=== PATIENT | female | born 1940 | race Hispanic/Latino ===

== ENCOUNTER 2019-02-28 11:01 | Inpatient (IN) | payer MEDICARE ==
--- NOTE | 2019-02-28 11:29 | Event Note ---
ED Screening Note Date of service: 02/28/19 Time: 11:24 ED Screening Note: 79 y/o female comes in for concern of a stroke. Friend reports that she has been slow to respond today. Patient passed swallow screen test. Patient to be seen in the MAIN This initial assessment/diagnostic orders/clinical plan/treatment(s) is/are subject to change based on patients health status, clinical progression and re- assessment by fellow clinical providers in the ED. Further treatment and workup at subsequent clinical providers discretion. Patient/guardian urged not to elope from the ED as their condition may be serious if not clinically assessed and managed. Initial orders include: Cbc,cmp
[2019-02-28 12:09] LABS: Basophils % (Auto) 0.6 % (0.0-1.8); Eosinophils % (Auto) 0.3 % (0.0-4.3); Hematocrit 46.7 % (30.3-42.9); Hemoglobin 16.2 gm/dl (10.1-14.3); Lymphocytes # (Auto) 1.6 K/mm3 (1.2-5.4); Lymphocytes % (Auto) 19.5 % (13.4-35.0); Mean Corpuscular HGB Conc 35 % (30-34); Mean Corpuscular Volume 87 fl (79-97); Monocytes # (Auto) 0.5 K/mm3 (0.0-0.8); Monocytes % (Auto) 5.8 % (0.0-7.3); Platelet Count 176 K/mm3 (140-440); Red Blood Count 5.35 M/mm3 (3.65-5.03); Red Cell Distribution Width 12.6 % (13.2-15.2)
[2019-02-28 12:20] LABS: INR 0.89 (0.87-1.13); Partial Thromboplastin Time 20.4 Sec. (24.2-36.6)
--- NOTE | 2019-02-28 13:27 | Cat Scan Report ---
CT head/brain wo con INDICATION / CLINICAL INFORMATION: 79 years Female; AMS. TECHNIQUE: Routine CT head without contrast. All CT scans at this location are performed using CT dos e reduction for ALARA by means of automated exposure control. COMPARISON: MRI - 04/05/2018 FINDINGS: BRAIN / INTRACRANIAL CONTENTS: Low density area seen in the anterior lentiform nucleus on the left wh ich could represent a small lesion or lacunar infarct. This finding was not readily appreciated on pr ior study. This area measures approximately 8 mm in maximum dimension. Pre and postcontrast MRI may b e helpful for further evaluation. Otherwise, no acute hemorrhage, mass effect, midline shift, hydrocephalus, or acute, large territoria l infarct. Moderate cerebral and cerebellar atrophy. There are moderate, somewhat confluent areas of decreased attenuation in the white matter of the cere bral hemispheres. These are nonspecific findings and may be related to microangiopathy (hypertension, diabetes, atherosclerosis), given the patient's age. It might be difficult to evaluate for small are as of ischemia without diffusion imaging by MRI. CRANIOCERVICAL JUNCTION: No significant abnormality. ORBITS: No significant abnormality of visualized orbits. SINUSES / MASTOIDS: No significant abnormality of the visualized paranasal sinuses or mastoid air curtis ls. ADDITIONAL FINDINGS: Mild atherosclerotic disease is seen in the anterior and posterior circulation. IMPRESSION: 1. Nonspecific lesion in the left gangliocapsular region as described above. Pre and postcontrast MRI may be helpful for further evaluation, if clinically warranted. 2. Otherwise, no focal mass, hemorrhage, hydrocephalus, or acute, large territorial infarct seen. Signer Name: Estiven Solares MD, III Signed: 02/28/2019 1:23 PM Workstation Name: [id number]
[2019-02-28 13:34] LABS: Alanine Aminotransferase 13 units/L (7-56); Albumin 4.1 g/dL (3.9-5); BUN/Creatinine Ratio 32; Blood Urea Nitrogen 16 mg/dL (7-17); Calcium 9.9 mg/dL (8.4-10.2); Hemolysis Index 26
[2019-02-28] MEDS ORDERED: HumuLIN R IV ONE (13:41)
--- NOTE | 2019-02-28 14:39 | Emergency Department Report ---
HPI - General Chief Complaint: Neuro Symptoms/Deficit Time Seen by Provider: 02/28/19 11:24 - HPI HPI: 79-year-old female presents to the emergency department with complaint of some strokelike symptoms that are been going on intermittently over the past few days. The patient says that she was on the phone speaking with friends earlier when the friend felt like she wasn't making sense and was slurring some of her words. The patient told the friend who her primary care physician is and the friend then contacted them. She was told to have the patient come to the emergency department immediately for further evaluation. Since being in the emergency department, the patient is awake, alert and appropriate without any complaints or obvious deficits. The patient says that this has been going on intermittently over the past few days including where she feels like she is unable to completely express herself the way she intends to. The patient has a history of [id number] diabetes. The primary care physician is a Dr. Ko. ED Past Medical Hx - Past Medical History Previous Medical History?: Yes Hx Diabetes: Yes - Surgical History Past Surgical History?: Yes Additional Surgical History: biopsy - Social History Smoking Status: Never Smoker Substance Use Type: None ED Review of Systems ROS: Stated complaint: POSS STROKE/DIZZY Other details as noted in HPI Comment: All other systems reviewed and negative Constitutional: denies: chills, fever Eyes: denies: eye pain, vision change ENT: denies: ear pain, throat pain Respiratory: denies: cough, shortness of breath Cardiovascular: denies: chest pain, palpitations Gastrointestinal: denies: abdominal pain, vomiting Genitourinary: denies: dysuria, discharge Musculoskeletal: denies: back pain, arthralgia Skin: denies: rash, lesions Neurological: denies: headache, numbness Physical Exam - Physical Exam Vital Signs: Vital Signs 02/28/19 02/28/19 11:24 13:36 Temperature 97.9 F Pulse Rate 100 H 87 Respiratory 18 20 Rate Blood Pressure 161/88 Blood Pressure 163/88 [Right] O2 Sat by Pulse 98 96 Oximetry Physical Exam: GENERAL: The patient is well-developed well-nourished. HENT: Normocephalic. Atraumatic. Patient has moist mucous membranes. EYES: Extraocular motions are intact. Pupils equal reactive to light bilaterally. Mild fatigable horizontal nystagmus. NECK: Supple. Trachea is midline. CHEST/LUNGS: Clear to auscultation. There is no respiratory distress noted. HEART/CARDIOVASCULAR: Regular. There is no tachycardia. There is no murmur. ABDOMEN: Abdomen is soft, nontender. Patient has normal bowel sounds. There is no abdominal distention. SKIN: Skin is warm and dry. NEURO: The patient is awake, alert, and oriented. The patient is cooperative. The patient has no focal neurologic deficits. The patient has normal speech. Cranial nerves II through XII grossly intact. No pronator drift. No dysmetria. No facial asymmetry. MUSCULOSKELETAL: There is no tenderness or deformity. There is no limitation range of motion. There is no evidence of acute injury. ED Course Vital Signs 02/28/19 02/28/19 11:24 13:36 Temperature 97.9 F Pulse Rate 100 H 87 Respiratory 18 20 Rate Blood Pressure 161/88 Blood Pressure 163/88 [Right] O2 Sat by Pulse 98 96 Oximetry ED Medical Decision Making - Lab Data Result diagrams: 02/28/19 11:48 02/28/19 11:45 - EKG Data -: EKG Interpreted by Ny EKG shows normal: sinus rhythm, axis, intervals, QRS complexes (LVH), ST-T waves (flattening of T waves) Rate: normal - EKG Data When compared to previous EKG there are: previous EKG unavailable Interpretation: other (sinus rhythm, LVH, flattening of T waves) - Radiology Data Radiology results: report reviewed CT head/brain wo con INDICATION / CLINICAL INFORMATION: 79 years Female; AMS. TECHNIQUE: Routine CT head without contrast. All CT scans at this location are performed using CT dose reduction for ALARA by means of automated exposure control. COMPARISON: MRI - 04/05/2018 FINDINGS: BRAIN / INTRACRANIAL CONTENTS: Low density area seen in the anterior lentiform nucleus on the left which could represent a small lesion or lacunar infarct. This finding was not readily appreciated on prior study. This area measures approximately 8 mm in maximum dimension. Pre and postcontrast MRI may be helpful for further evaluation. Otherwise, no acute hemorrhage, mass effect, midline shift, hydrocephalus, or acute, large territorial infarct. Moderate cerebral and cerebellar atrophy. There are moderate, somewhat confluent areas of decreased attenuation in the white matter of the cerebral hemispheres. These are nonspecific findings and may be related to microangiopathy (hypertension, diabetes, atherosclerosis), given the patient's age. It might be difficult to evaluate for small areas of ischemia without diffusion imaging by MRI. CRANIOCERVICAL JUNCTION: No significant abnormality. ORBITS: No significant abnormality of visualized orbits. SINUSES / MASTOIDS: No significant abnormality of the visualized paranasal sinuses or mastoid air cells. ADDITIONAL FINDINGS: Mild atherosclerotic disease is seen in the anterior and posterior circulation. IMPRESSION: 1. Nonspecific lesion in the left gangliocapsular region as described above. Pre and postcontrast MRI may be helpful for further evaluation, if clinically warranted. 2. Otherwise, no focal mass, hemorrhage, hydrocephalus, or acute, large territorial infarct seen. - Medical Decision Making This patient presents for evaluation after she has had some strokelike symptoms recently including some difficulty with her thought process, difficulty expressing herself while on the phone and some questionable slurred speech. However at the time of my examination the patient has no focal, motor or sensory deficits in her cranial nerves are intact. Vital signs stable. He being afebrile but she does have some hypertension. The patient has a history of [id number] diabetes and she does have some hyperglycemia but does not appear to be in diabetic ketoacidosis or HHNK. She was given some IV insulin for treatment of her hyperglycemia. CT scan of the head without contrast showed some nonspecific lesion to the left ganglia capsular region. With her strokelike symptoms and this abnormal CT finding of the brain, the patient will be admitted to the hospital for further evaluation. She was accepted for admission by the hospitalist, Dr. Frederick. - Differential Diagnosis TIA, CVA, DKA, HHNK Critical Care Time: No Critical care attestation.: If time is entered above; I have spent that time in minutes in the direct care of this critically ill patient, excluding procedure time. ED Disposition Clinical Impression: Stroke-like symptoms, Abnormal CT scan of head Hypertension Qualifiers: Hypertension type: essential hypertension Qualified Code(s): I10 - Essential (primary) hypertension Hyperglycemia due to type 2 diabetes mellitus Qualifiers: Diabetes mellitus mcc insulin use: unspecified mcc insulin use status Qualified Code(s): E11.65 - Type 2 diabetes mellitus with hyperglycemia Disposition: OP ADMIT IP TO THIS HOSP Is pt being admited?: Yes Condition: Stable Instructions: Hypertension (ED), Diabetes Mellitus Type 2 in Adults (ED) Time of Disposition: 15:39
[2019-02-28] MEDS ORDERED: ZOFRAN IV PRN (21:20)
[2019-02-28] MEDS ORDERED: TYLENOL PO PRN (21:20)
[2019-02-28] MEDS ORDERED: REGLAN IV PRN (21:20)
[2019-02-28] MEDS ORDERED: SODIUM CHLORIDE FLUSH SYRINGE 10 ML IV PRN (21:20)
[2019-02-28] MEDS ORDERED: DILAUDID IV PRN (21:20)
[2019-02-28] MEDS: NACL 0.9% 1000 ML 1,000 ML IV SCH (21:59)
[2019-02-28] MEDS: ASPIRIN PO SCH (22:00)
[2019-02-28] MEDS: HumaLOG SUB-Q SCH (22:00)
[2019-02-28] MEDS: PEPCID IV SCH (22:00)
[2019-02-28] MEDS: SODIUM CHLORIDE FLUSH SYRINGE 10 ML IV SCH (22:00)
[2019-03-01] MEDS ORDERED: LANTUS SUB-Q ONE (00:18)
[2019-03-01 05:13] LABS: Basophils % (Auto) 0.5 % (0.0-1.8); Eosinophils # (Auto) 0.1 K/mm3 (0.0-0.4); Hematocrit 43.2 % (30.3-42.9); Lymphocytes # (Auto) 2.8 K/mm3 (1.2-5.4); Lymphocytes % (Auto) 39.5 % (13.4-35.0); Mean Corpuscular HGB Conc 35 % (30-34); Mean Corpuscular Volume 87 fl (79-97); Monocytes # (Auto) 0.5 K/mm3 (0.0-0.8); Monocytes % (Auto) 7.5 % (0.0-7.3); Platelet Count 144 K/mm3 (140-440); Red Blood Count 4.97 M/mm3 (3.65-5.03); Red Cell Distribution Width 12.6 % (13.2-15.2)
[2019-03-01 05:50] LABS: Alanine Aminotransferase 11 units/L (7-56); Albumin 3.7 g/dL (3.9-5); BUN/Creatinine Ratio 32; Blood Urea Nitrogen 16 mg/dL (7-17); Calcium 9.4 mg/dL (8.4-10.2); Hemolysis Index 7
--- NOTE | 2019-03-01 07:03 | Event Note ---
Date: 02/28/19 SEE H/p in reports TIA
--- NOTE | 2019-03-01 07:28 | History and Physical Report ---
CHIEF COMPLAINT: Slurred speech off and on for the last 2-3 days. HISTORY OF PRESENT ILLNESS: A 79-year-old female with history of diabetes, presents with a slurred speech off and on for the last 2 days, which has resolved while in the Emergency Room. She was talking on phone with friends who noticed that she was not making sense and was slurring her words. In the Emergency Room, the patient is awake, alert with no obvious neurological deficits. As per the friend who was at a side, the patient had slurred speech and severe dysarthria and could not understand. PAST MEDICAL HISTORY: Diabetes type 2. PAST SURGICAL HISTORY: None. SOCIAL HISTORY: Does not smoke. No alcohol, no recreational drugs. FAMILY HISTORY: Significant for diabetes. REVIEW OF SYSTEMS: Significant for slurred speech on the INCIDENT COORDINATOR symptoms, which has resolved completely. Otherwise, review of systems negative. PHYSICAL EXAMINATION: GENERAL: Elderly female, cooperative during examination. VITAL SIGNS: Blood pressure is 207/134, temperature 98.6, pulse is 104, respirations are 23, sats are 93%. HEENT: Unremarkable. Pupils equal and reactive. NECK: Supple, no lymphadenopathy, no thyromegaly. LUNGS: Clear to auscultation and percussion. Good air entry. CARDIOVASCULAR: S1, S2 heard. No gallop, no murmur, no rub. Apical impulse in left fifth intercostal space and midclavicular line. ABDOMEN: Soft and benign. No hepatosplenomegaly. No guarding, no rigidity. Hernial orifices are normal. EXTREMITIES: Good pedal pulses. No pedal edema. CENTRAL NERVOUS SYSTEM: Normal at the time of my examination. Power is 5/5 in all 4 extremities. Speech is normal. No cranial nerve deficits. No facial palsy. LABORATORY DATA: Significant for H and H of 16.2 and 46.7. White count is 8100, platelet count is 176,000. Sodium is 135, slightly low. BUN and creatinine is 16 and 0.5. Glucose is 388. A1c is 12.5, albumin is 3.7. ASSESSMENT AND PLAN: 1. Transient ischemic attack, symptoms are resolved. We will get MRI and carotid duplex scan and echocardiogram. MRA was not ordered. Neurology consult was requested. 2. Hypertensive emergency. Blood pressure medications were initiated. IV hydralazine as necessary. 3. Type 2 diabetes, uncontrolled. Aggressive control of blood sugars. A1c is high, about 12. The patient is to be discharged on insulin twice a day. The patient counseled about the blood glucose levels. Slurred speech may have been secondary to high blood glucose levels. 4. Hyponatremia, mild. IV fluids for now. 5. Deep venous thrombosis prophylaxis, Lovenox 40 mg subcutaneous daily. JOB# [id number] VSM/NTS
[2019-03-01] MEDS: HumaLOG SUB-Q SCH ×4 (08:00→23:24)
[2019-03-01] MEDS: SODIUM CHLORIDE FLUSH SYRINGE 10 ML IV SCH ×2 (10:45→23:25)
[2019-03-01] MEDS: COZAAR PO SCH (10:45)
[2019-03-01] MEDS: COREG PO SCH ×2 (10:45→23:24)
[2019-03-01] MEDS ORDERED: ATIVAN IV NR (10:45)
[2019-03-01] MEDS: ASPIRIN PO SCH (10:45)
[2019-03-01] MEDS: PEPCID PO SCH ×2 (10:48→23:23)
[2019-03-01] MEDS: PEPCID IV SCH (11:35)
--- NOTE | 2019-03-01 12:05 | Vascular Lab Report ---
BILATERAL CAROTID DOPPLER ULTRASOUND INDICATION : Transient ischemic attack TECHNIQUE: Grayscale and color Doppler imaging performed through the neck. COMPARISON: None FINDINGS: Right: There is minimal intimal hyperplasia throughout the right carotid system.. Peak systolic ajck ocity in the CCA is 88 cm/s with end-diastolic velocity of 12 cm/s. Peak systolic velocity in the pro ximal ICA is 78 cm/s with end-diastolic velocity of 21 cm/s. ICA to CCA ratio is less than 2. There i s antegrade flow in the ECA and the vertebral artery. Left: There is mild intimal hyperplasia in the left CCA and moderate shadowing calcific plaques in th e left carotid bulb.. Peak systolic velocity in the CCA is 85 cm/s with end-diastolic velocity of 10 cm/s. Peak systolic velocity in the proximal ICA is 71 cm/s with end-diastolic velocity of 24 cm/s. I CA to CCA ratio is less than 2. There is antegrade flow in the ECA and the vertebral artery. IMPRESSION: No hemodynamically significant stenosis by NASCET criteria. Moderate calcific plaques in the left carotid bulb. Signer Name: Kalyan Bhakta Jr, MD Signed: 03/01/2019 12:01 PM Workstation Name: [id number]
--- NOTE | 2019-03-01 12:10 | Progress Note ---
Assessment and Plan Assessment and plan: CVA. CT scan of the head reveals left gangliocapsular region with possible lacunar infarct versus lesion. F/U MRI, echocardiogram and carotid Dopplers. Accelerated hypertension. Continue antihypertensive medications. Diabetes mellitus type 2. Continue Accu-Cheks and sliding scale insulin. Hyponatremia. Continue IV fluid hydration. Follow BMP. Hypokalemia. Replete potassium. History Interval history: No new issues overnight. Patient denies deficits. Hospitalist Physical - Constitutional Vitals: Temp Pulse Resp BP Pulse Ox 97.9 F 82 18 171/85 98 03/01/19 04:18 03/01/19 07:40 03/01/19 04:15 03/01/19 04:15 03/01/19 04:15 General appearance: Present: no acute distress, well-nourished - EENT Eyes: Present: PERRL, EOM intact ENT: hearing intact, clear oral mucosa, dentition normal - Neck Neck: Present: supple, normal ROM - Respiratory Respiratory effort: normal Respiratory: bilateral: CTA - Cardiovascular Rhythm: regular Heart Sounds: Present: S1 & S2. Absent: gallop, rub - Extremities Extremities: no ischemia, No edema, Full ROM - Abdominal General gastrointestinal: soft, non-tender, non-distended, normal bowel sounds - Integumentary Integumentary: Present: clear, warm, dry - Neurologic Neurologic: CNII-XII intact, moves all extremities Results - Labs CBC & Chem 7: 03/01/19 03:59 03/01/19 03:59 Labs: Laboratory Last Values WBC 7.0 K/mm3 (4.5-11.0) 03/01/19 03:59 RBC 4.97 M/mm3 (3.65-5.03) 03/01/19 03:59 Hgb 15.0 gm/dl (10.1-14.3) H 03/01/19 03:59 Hct 43.2 % (30.3-42.9) H 03/01/19 03:59 MCV 87 fl (79-97) 03/01/19 03:59 MCH 30 pg (28-32) 03/01/19 03:59 MCHC 35 % (30-34) H 03/01/19 03:59 RDW 12.6 % (13.2-15.2) L 03/01/19 03:59 Plt Count 144 K/mm3 (140-440) 03/01/19 03:59 Lymph % (Auto) 39.5 % (13.4-35.0) H 03/01/19 03:59 Talbot % (Auto) 7.5 % (0.0-7.3) H 03/01/19 03:59 Eos % (Auto) 1.0 % (0.0-4.3) 03/01/19 03:59 Baso % (Auto) 0.5 % (0.0-1.8) 03/01/19 03:59 Lymph # 2.8 K/mm3 (1.2-5.4) 03/01/19 03:59 Talbot # 0.5 K/mm3 (0.0-0.8) 03/01/19 03:59 Eos # 0.1 K/mm3 (0.0-0.4) 03/01/19 03:59 Baso # 0.0 K/mm3 (0.0-0.1) 03/01/19 03:59 Seg Neutrophils % 51.5 % (40.0-70.0) 03/01/19 03:59 Seg Neutrophils # 3.6 K/mm3 (1.8-7.7) 03/01/19 03:59 PT 11.8 Sec. (12.2-14.9) L 02/28/19 11:48 INR 0.89 (0.87-1.13) 02/28/19 11:48 APTT 20.4 Sec. (24.2-36.6) L 02/28/19 11:48 Sodium 138 mmol/L (137-145) 03/01/19 03:59 Potassium 3.0 mmol/L (3.6-5.0) L D 03/01/19 03:59 Chloride 100.3 mmol/L (98-107) 03/01/19 03:59 Carbon Dioxide 25 mmol/L (22-30) 03/01/19 03:59 16 mmol/L 03/01/19 03:59 BUN 16 mg/dL (7-17) 03/01/19 03:59 0.5 mg/dL (0.7-1.2) L 03/01/19 03:59 Estimated GFR > 60 ml/min 03/01/19 03:59 32 % 03/01/19 03:59 Glucose 202 mg/dL (65-100) H 03/01/19 03:59 POC Glucose 201 (70-105) H 03/01/19 07:29 12.5 % (4-6) H 02/28/19 11:48 Calcium 9.4 mg/dL (8.4-10.2) 03/01/19 03:59 0.40 mg/dL (0.1-1.2) 03/01/19 03:59 AST 12 units/L (5-40) 03/01/19 03:59 ALT 11 units/L (7-56) 03/01/19 03:59 75 units/L (35-129) 03/01/19 03:59 < 0.010 ng/mL (0.00-0.029) 02/28/19 12:42 6.7 g/dL (6.3-8.2) 03/01/19 03:59 3.7 g/dL (3.9-5) L 03/01/19 03:59 1.2 % 03/01/19 03:59 TSH 2.170 mlU/mL (0.270-4.200) 02/28/19 12:42 Active Medications - Current Medications Current Medications: Generic Name Dose Route Start Last Admin Trade Name Freq PRN Reason Stop Dose Admin Acetaminophen 650 mg 02/28/19 21:20 Tylenol PO Q4H PRN Pain MILD(1-3)/Fever >100.5/SMYTH Aspirin 325 mg 02/28/19 22:00 03/01/19 10:45 Aspirin PO 325 mg QDAY MARY GRACE Administration Atorvastatin Calcium 20 mg 02/28/19 22:00 02/28/19 22:00 Lipitor PO 20 mg QHS MARY GRACE Administration Carvedilol 6.25 mg 03/01/19 10:00 03/01/19 10:45 Coreg PO 6.25 mg BID MARY GRACE Administration Enoxaparin Sodium 40 mg 03/01/19 22:00 Lovenox SUB-Q QDAY@2200 MARY GRACE Famotidine 20 mg 03/01/19 11:00 03/01/19 10:48 Pepcid PO 20 mg BID MARY GRACE Administration Hydromorphone HCl 0.5 mg 02/28/19 21:20 Dilaudid IV Q3H PRN Pain , Severe (7-10) Sodium Chloride 1,000 mls @ 75 mls/hr 02/28/19 22:00 02/28/19 21:59 Nacl 0.9% 1000 Ml IV 75 mls/hr DIRECT MARY GRACE Administration Insulin Human Isoph/Insulin Regular 20 unit 03/01/19 09:00 03/01/19 10:48 Humulin 70/30 SUB-Q 20 unit BIDDIAB MARY GRACE Administration Insulin Human Lispro 0 unit 02/28/19 22:00 03/01/19 08:00 Humalog SUB-Q 3 unit ACHS MARY GRACE Administration Protocol Lorazepam 0.5 mg 03/01/19 10:45 Ativan IV 03/01/19 18:00 CORK TIPPER NR Losartan Potassium 100 mg 03/01/19 10:00 03/01/19 10:45 Cozaar PO 100 mg QDAY MARY GRACE Administration Metoclopramide HCl 10 mg 02/28/19 21:20 Reglan IV Q6H PRN Nausea And Vomiting Ondansetron HCl 4 mg 02/28/19 21:20 Zofran IV Q8H PRN Nausea And Vomiting Sodium Chloride 10 ml 02/28/19 22:00 03/01/19 10:45 Sodium Chloride Flush Syringe 10 Ml IV 10 ml BID MARY GRACE Administration Sodium Chloride 10 ml 02/28/19 21:20 Sodium Chloride Flush Syringe 10 Ml IV PRN PRN LINE FLUSH
[2019-03-01] MEDS: K-DUR PO SCH (14:47)
[2019-03-01] MEDS: NACL 0.9% 1000 ML 1,000 ML IV SCH (14:47)
--- NOTE | 2019-03-01 16:18 | Consultation ---
History of Present Illness Consult date: 03/01/19 Reason for Consult: TIA Chief complaint: Difficulty speaking History of present illness: Patient is a 79-year-old woman with a history of hypertension, diabetes mellitus, depression. She lives alone at home, and noted that for the past 2 weeks, she not been taking her medications regularly. Last , she been s peaking with a friend of hers over the phone, and her friend noted that she seemed confused, and had some difficulty finding words while communicating. Her friend came to check on her home, and found that she indeed had some difficulty while communicating. She was only answering in yes or no answers at that time, and was unable to have detailed conversation, as she had difficulty finding words. After admission, the patient has now returned to baseline. Past History Past Medical History: diabetes, hypertension, other (depression) Social history: no significant social history, Lives alone Medications and Allergies Allergies Allergy/AdvReac Type Severity Reaction Status Date / Time Penicillins Allergy Unknown Verified 01/21/15 18:11 Home Medications Medication Instructions Recorded Confirmed Last Taken Type No Known Home Medications [No 02/28/19 02/28/19 Unknown History Reported Home Medications] Active Meds: Active Medications Acetaminophen (Tylenol) 650 mg PO Q4H PRN PRN Reason: Pain MILD(1-3)/Fever >100.5/SMYTH Aspirin (Aspirin) 325 mg PO QDAY [facility] Last Admin: 03/01/19 10:45 Dose: 325 mg Documented by: Atorvastatin Calcium (Lipitor) 20 mg PO QHS [facility] Last Admin: 02/28/19 22:00 Dose: 20 mg Documented by: Carvedilol (Coreg) 6.25 mg PO BID [facility] Last Admin: 03/01/19 10:45 Dose: 6.25 mg Documented by: Enoxaparin Sodium (Lovenox) 40 mg SUB-Q QDAY@2200 [facility] Famotidine (Pepcid) 20 mg PO BID [facility] Last Admin: 03/01/19 10:48 Dose: 20 mg Documented by: Hydromorphone HCl (Dilaudid) 0.5 mg IV Q3H PRN PRN Reason: Pain , Severe (7-10) Sodium Chloride (Nacl 0.9% 1000 Ml) 1,000 mls @ 75 mls/hr IV DIRECT [facility] Last Admin: 03/01/19 14:47 Dose: 75 mls/hr Documented by: Insulin Human Isoph/Insulin Regular (Humulin 70/30) 20 unit SUB-Q BIDDIAB [facility] Last Admin: 03/01/19 10:48 Dose: 20 unit Documented by: Insulin Human Lispro (Humalog) 0 unit SUB-Q ACHS [facility]; Protocol Last Admin: 03/01/19 13:24 Dose: 8 unit Documented by: Lorazepam (Ativan) 0.5 mg 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 Stop: 03/01/19 18:00 Last Admin: 03/01/19 13:32 Dose: 0.5 mg Documented by: Losartan Potassium (Cozaar) 100 mg PO QDAY [facility] Last Admin: 03/01/19 10:45 Dose: 100 mg Documented by: Metoclopramide HCl (Reglan) 10 mg IV Q6H PRN PRN Reason: Nausea And Vomiting Ondansetron HCl (Zofran) 4 mg IV Q8H PRN PRN Reason: Nausea And Vomiting Potassium Chloride (K-Dur) 40 meq PO QDAY [facility] Last Admin: 03/01/19 14:47 Dose: 40 meq Documented by: Sodium Chloride (Sodium Chloride Flush Syringe 10 Ml) 10 ml IV BID [facility] Last Admin: 03/01/19 10:45 Dose: 10 ml Documented by: Sodium Chloride (Sodium Chloride Flush Syringe 10 Ml) 10 ml IV PRN PRN PRN Reason: LINE FLUSH Review of Systems All systems: negative Neurological: change in speech Psychiatric: depression Physical Examination - Vital Signs Vital Signs: Vital Signs Temp Pulse Resp BP Pulse Ox 97.9 F 100 H 18 161/88 98 02/28/19 11:24 02/28/19 11:24 02/28/19 11:24 02/28/19 11:24 02/28/19 11:24 - Constitutional General appearance: comfortable - EENT EENT: Present: ATNC, PERRL, mucous membranes moist, hearing intact, vision intact - Respiratory Respiratory: Present: lungs clear, normal breath sounds - Cardiovascular Cardiovascular: Present: regular rate, normal S1, normal S2 Extremities: Present: no peripheral edema bilatateraly, no clubbing, cyanosis - Gastrointestinal Gastrointestinal: Present: normoactive bowel sounds, soft, non-tender - Integumentary Integumentary: Present: normal - Neurologic Cranial nerve examination: PERRL, EOMI, VFF, V1/V2/V3 grossly intact, face symmetric, intact shoulder shrug Speech examination: intact Sensorimotor examination: intact Motor examination - right side: 5: biceps, triceps, wrist flexion, wrist extension, barometers calibrator, hip flexors, knee extensors, dorsiflexion, toe extension (EHL), plantarflexion Motor examination - left side: 5: biceps, triceps, wrist flexion, wrist extension, barometers calibrator, hip flexors, knee extensors, dorsiflexion, toe extension (EHL), plantarflexion Detailed sensory examination: intact, light touch Reflexes: 2+: ankle, bicep, knee, tricep Cerebellar examination: other (intact b/l to FTN) - Musculoskeletal Musculoskeletal: Present: no pain, normal range of motion - Psychiatric Psychiatric: Present: mood/affect appropriate, cooperative - Level of Consciousness 1a. Level of Consciousness: alert/keenly responsive - LOC Questions 1b. LOC Questions: answers both correctly - LOC Command 1c. LOC Commands: performs tasks correctly - Best Gaze 2. Best Gaze: normal - Visual 3. Visual: no visual loss - Facial Palsy 4. Facial Palsy: normal symmetrical movement - Motor Arm 5a. Motor Arm Left: no drift 5b. Motor Arm Right: no drift - Motor Leg 6a. Motor Leg Left: no drift 6b. Motor Leg Right: no drift - Limb Ataxia 7. Limb Ataxia: absent - Sensory 8. Sensory: normal - Best Language 9. Best Language: no aphasia - Dysarthria 10. Dysarthria: normal - Extinction and Inattention 11. Extinction/Inattention: no abnormality - Scoring Total Score: 0 Stroke Severity: No Stroke Symptoms Results - Laboratory Findings CBC and BMP: 03/01/19 03:59 03/01/19 03:59 Abnormal Lab Findings: Abnormal Labs 02/28/19 02/28/19 02/28/19 11:34 11:45 11:48 RBC 5.35 H Hgb 16.2 H Hct 46.7 H MCHC 35 H RDW 12.6 L Lymph % (Auto) [place] % (Auto) Seg Neutrophils % 73.8 H PT APTT Sodium 135 L Potassium Chloride 93.5 L Creatinine 0.5 L Glucose 388 H POC Glucose 342 H Hemoglobin A1c Albumin 02/28/19 02/28/19 02/28/19 11:48 11:48 14:49 RBC Hgb Hct MCHC RDW Lymph % (Auto) [place] % (Auto) Seg Neutrophils % PT 11.8 L APTT 20.4 L Sodium Potassium Chloride Creatinine Glucose POC Glucose 299 H Hemoglobin A1c 12.5 H Albumin 02/28/19 02/28/19 02/28/19 16:28 17:47 21:12 RBC Hgb Hct MCHC RDW Lymph % (Auto) [place] % (Auto) Seg Neutrophils % PT APTT Sodium Potassium Chloride Creatinine Glucose POC Glucose 253 H 350 H > 500 H Hemoglobin A1c Albumin 02/28/19 03/01/19 03/01/19 21:48 00:12 03:59 RBC Hgb 15.0 H Hct 43.2 H MCHC 35 H RDW 12.6 L Lymph % (Auto) 39.5 H [place] % (Auto) 7.5 H Seg Neutrophils % PT APTT Sodium Potassium Chloride Creatinine Glucose 567 H* POC Glucose 297 H Hemoglobin A1c Albumin 03/01/19 03/01/19 03/01/19 03:59 07:29 12:14 RBC Hgb Hct MCHC RDW Lymph % (Auto) [place] % (Auto) Seg Neutrophils % PT APTT Sodium Potassium 3.0 L D Chloride Creatinine 0.5 L Glucose 202 H POC Glucose 201 H 403 H Hemoglobin A1c Albumin 3.7 L Assessment and Plan Patient is a 79-year-old woman with a history of hypertension, diabetes m ellitus, depression. She presents with word finding difficulty that was noted by her friend while talking to her on . I spoke with her friend, Destiny, and was given a detailed explanation of what happened during that event. According the patient's clinical findings, it is possible that the patient has had a TIA. Supporting this diagnosis is the fact that the patient has risk factors of hypertension, diabetes mellitus, and not been taking her medications for the past 2 weeks. Patient had previously been prescribed aspirin, however she states that she is noncompliant with this. Further, her friend stated that she noted word finding difficulty when trying to speak to the patient on . Plan: 1:TIA: - MRI brain did not reveal any evidence of acute ischemic stroke Echocardiogram: EF 60-65%, bubble study negative, left atrium normal size. Hemoglobin A1c 12.5. Check lipid profile. Check urinalysis. - Check CTA head/neck for better visualization of cerebrovasculature Secondary prevention: Start patient on aspirin 81 mg daily. Start patient on atorvastatin 40 mg daily. Telemetry monitoring while in-house. Physical therapy and occupational therapy for evaluation of mobility. Speech therapy not indicated at this time as patient does not have any notable speech impairment. DVT prophylaxis: Recommend Lovenox #2 hypertension: Recommend blood pressure goal of normotension, as event is greater than 48 hours ago. - We'll continue to follow patient. - Once discharged, patient would need to follow up with neurology as outpatient. Mitchel Gonzalez MD Neurology
--- NOTE | 2019-03-01 16:46 | Magnetic Resonance Report ---
MRI BRAIN WITHOUT CONTRAST INDICATION / CLINICAL INFORMATION: TIA. TECHNIQUE: Multiplanar, multisequence MR images of the brain were obtained. COMPARISON: MRI scan from 04/05/2018 FINDINGS: BRAIN / INTRACRANIAL CONTENTS: No acute territorial and basal ganglia ischemia, acute hemorrhage, mas s effect, midline shift, or hydrocephalus. However, as seen in the last MRI scan, extra-axial lesion is seen in the left pterion with increased diffusion signal. This lesion enhanced homogenously in th e last MRI scan, consistent with meningioma. This meningioma measures 15 mm (sagittal) x 16 mm (heigh t) x 10millimeters (width). Since the last MRI scan, meningioma remains unchanged in size. I do not s ee vasogenic edema in the adjacent brain. As seen in the last MRI scan, confluent periventricular white matter hyperintensity (moderate) seen. Chronic microvascular angiopathic changes are seen in both basal ganglia and to a lesser degree in th e valentin. White matter lesions are also seen in the temporal lobes which would be an usual microvascula r faint angiopathy. Since the last MRI scan, ischemic changes are also seen in the left centrum semiovale. I am unable to determine the age. IMPRESSION: CRANIOCERVICAL JUNCTION: No significant abnormality. VASCULAR FLOW-VOIDS: No significant abnormality. ORBITS: No significant abnormality of visualized orbits. SINUSES / MASTOIDS: No significant abnormality of visualized sinuses and mastoid air cells. ADDITIONAL FINDINGS: None. IMPRESSION: I do not see acute or subacute infarction. Left anterior and meningioma; remains unchanged since March 2018 Signer Name: Yeison Clements MD Signed: 03/01/2019 4:41 PM Workstation Name: [id number]
[2019-03-01] MEDS ORDERED: LOVENOX SUB-Q SCH (22:00)
[2019-03-02 03:02] LABS: Chol/HDL Ratio 5.4 %
[2019-03-02 08:00] LABS: Bilirubin,Urine NEG (Negative); Blood,Urine NEG (Negative); Color,Urine Yellow (Yellow); Protein,Urine <15 mg/dL mg/dL (Negative); Urobilinogen,Urine < 2.0 mg/dL (<2.0)
--- NOTE | 2019-03-02 09:25 | Discharge Summary ---
Providers - Providers Date of Admission: 02/28/19 14:48 Date of discharge: 03/02/19 Attending physician: RODOLFO CHAN 02/28/19 21:20 Consult to Physician [CONS] Routine Comment: Consulting Provider: AZIZA ESPINOSA Physician Instructions: Reason For Exam: TIA Primary care physician: [facility], Hospitalization Reason for admission: TIA Condition: Stable Hospital course: Patient is a 79-year-old woman with a history of hypertension, diabetes mellitus, depression. She presents with word finding difficulty that was noted by her friend while talking to her on . Neurology spoke with her friend, Destiny, and was given a detailed explanation of what happened during that event. According the patient's clinical findings, it is possible that the patient has had a TIA. Supporting this diagnosis is the fact that the patient has risk factors of hypertension, diabetes mellitus, and not been taking her medications for the past 2 weeks. Patient had previously been prescribed aspirin, however she states that she is noncompliant with this. Further, her friend stated that she noted word finding difficulty when trying to speak to the patient on . Workup revealed - MRI brain did not reveal any evidence of acute ischemic stroke Echocardiogram: EF 60-65%, bubble study negative, left atrium normal size. Hemoglobin A1c 12.5. Check lipid profile. Check urinalysis. - Check CTA head/neck for better visualization of cerebrovasculature Neurology recommended aspirin 81 mg daily and atorvastatin 40 mg daily. Patient will discharge home if cleared by physical therapy. Dedicated discharge time 32 minutes. Disposition: DC-30 STILL A PATIENT Core Measure Documentation - Palliative Care Palliative Care/ Comfort Measures: Not Applicable - Core Measures Any of the following diagnoses?: none Exam - Constitutional Vitals: Temp Pulse Resp BP Pulse Ox 98.0 F 108 H 18 156/62 98 03/01/19 19:40 03/01/19 23:24 03/01/19 19:40 03/01/19 23:24 03/01/19 19:40 General appearance: Present: no acute distress, well-nourished - EENT Eyes: Present: PERRL ENT: hearing intact, clear oral mucosa - Neck Neck: Present: supple, normal ROM - Respiratory Respiratory effort: normal Respiratory: bilateral: CTA - Cardiovascular Heart Sounds: Present: S1 & S2. Absent: rub, click - Extremities Extremities: pulses symmetrical, No edema Peripheral Pulses: within normal limits - Abdominal General gastrointestinal: Present: soft, non-tender, non-distended, normal bowel sounds Female genitourinary: Present: normal - Integumentary Integumentary: Present: clear, warm, dry - Musculoskeletal Musculoskeletal: gait normal, strength equal bilaterally - Psychiatric Psychiatric: appropriate mood/affect, intact judgment & insight - Neurologic Neurologic: CNII-XII intact, moves all extremities Plan Activity: advance as tolerated Weight Bearing Status: Weight Bear as Tolerated Diet: low fat, low cholesterol, low salt [facility] MARIA [facility]ESA [Primary Care Provider] - 3-5 Days AZIZA ESPINOSA MD [Staff Physician] - 7 Days Prescriptions: Aspirin [Aspirin BABY CHEW TAB] 81 mg PO QDAY #30 tab.chew Carvedilol [Coreg] 6.25 mg PO BID #60 tablet Losartan [Cozaar] 100 mg PO QDAY #30 tablet AtorvaSTATin [Lipitor] 40 mg PO QHS #30 tablet Insulin NPH/Regular [NovoLIN 70/30] 20 unit SUB-Q BIDDIAB 30 Days units Famotidine [Pepcid] 20 mg PO BID #60 tablet
[2019-03-02 09:38] VITALS: BP 158/85
[2019-03-02] MEDS ORDERED: BABY ASPIRIN PO SCH (10:00)
[2019-03-02] MEDS: COREG PO SCH (10:29)
[2019-03-02] MEDS: HumaLOG SUB-Q SCH ×2 (10:29→11:49)
[2019-03-02] MEDS: PEPCID PO SCH (10:29)
[2019-03-02] MEDS: K-DUR PO SCH (10:29)
[2019-03-02] MEDS: COZAAR PO SCH (10:29)
[2019-03-02] MEDS: SODIUM CHLORIDE FLUSH SYRINGE 10 ML IV SCH (10:30)
--- NOTE | 2019-03-02 14:36 | Progress Note ---
Assessment and Plan Patient is a 79-year-old woman with a history of hypertension, diabetes mellitus, depression. She presents with word finding difficulty that was noted by her friend while talking to her on . I spoke with her friend, Destiny, and was given a detailed explanation of what happened during that event. According the patient's clinical findings, it is possible that the patient has had a TIA. Supporting this diagnosis is the fact that the patient has risk factors of hypertension, diabetes mellitus, and not been taking her medications for the past 2 weeks. Patient had previously been prescribed aspirin, however she states that she is noncompliant with this. Further, her friend stated that she noted word finding difficulty when trying to speak to the patient on . Plan: 1:TIA: - MRI brain did not reveal any evidence of acute ischemic stroke Echocardiogram: EF 60-65%, bubble study negative, left atrium normal size. Hemoglobin A1c 12.5. LDL 201. Urinalysis did not reveal UTI. - CTA head/neck did not show any significant stenosis. Secondary prevention: Cont. patient on aspirin 81 mg daily. Start patient on atorvastatin 80 mg daily, as LDL 201. Discussed possible side effects with patient, and the patient is agreeable to taking this medication. Telemetry monitoring while in-house. Physical therapy and occupational therapy for evaluation of mobility. Speech therapy not indicated at this time as patient does not have any notable speech impairment. DVT prophylaxis: Recommend Lovenox #2 hypertension: Recommend blood pressure goal of normotension, as event is greater than 48 hours ago. - Will sign off. Please call with any questions. - Once discharged, patient would need to follow up with neurology as outpatient. 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 - Would also recommend for patient to establish care with psychiatry as outpatient for treatment of depression. - Discussed difficulty sleeping with patient, and it is felt that this may be due to underlying anxiety. Recommend for patient to see psychiatry as outpatient. Recommended for patient to try OTC melatonin 3mg QHS. Mitchel Gonzalez MD Neurology Subjective Date of service: 03/02/19 Principal diagnosis: TIA Interval history: Patient returned to baseline of mental status this morning. She was somewhat agitated and confused after having received ativan yesterday for the MRI. Objective - Vital Sign Vital Signs - 12hr 03/02/19 03/02/19 08:05 10:00 Temperature 98.4 F Pulse Rate 75 87 Respiratory 16 Rate Blood Pressure 158/85 O2 Sat by Pulse 98 Oximetry - General Apperance Constitutional: comfortable - EENT EENT: ATNC, PERRL, mucous membranes moist, hearing intact, vision intact - Respiratory Respiratory: lungs clear, normal breath sounds - Cardiovascular Cardiovascular: regular rate, normal S1, normal S2 Extremities: no peripheral edema bilat, no clubbing, cyanosis - Gastrointestinal Gastrointestinal: normoactive bowel sounds, soft, non-tender - Integumentary Integumentary: normal - Neurologic Cranial nerve examination: PERRL, EOMI, VFF, V1/V2/V3 grossly intact, face symmetric, intact shoulder shrug Speech examination: intact Detailed motor examination: grossly full strength in Motor examination - right side: 5/5: biceps, triceps, wrist flexion, wrist extension, cnc machine setter, hip flexors, knee extensors, dorsiflexion, toe extension (EHL), plantarflexion Motor examination - left side: 5/5: biceps, triceps, wrist flexion, wrist extension, cnc machine setter, hip flexors, knee extensors, dorsiflexion, toe extension (EHL), plantarflexion Detailed sensory examination: intact, light touch Reflexes: 2+: ankle, bicep, knee, tricep Cerebellar examination: other (b/l intact to FTN and HTS) - Psychiatric Psychiatric: mood/affect appropriate - Laboratory Findings CBC and BMP: 03/01/19 03:59 03/01/19 03:59 Abnormal Lab Findings: Abnormal Labs 02/28/19 02/28/19 02/28/19 11:34 11:45 11:48 RBC 5.35 H Hgb 16.2 H Hct 46.7 H MCHC 35 H RDW 12.6 L Lymph % (Auto) [place] % (Auto) Seg Neutrophils % 73.8 H PT APTT Sodium 135 L Potassium Chloride 93.5 L Creatinine 0.5 L Glucose 388 H POC Glucose 342 H Hemoglobin A1c Albumin Triglycerides Cholesterol LDL Cholesterol Direct Vitamin B12 02/28/19 02/28/19 02/28/19 11:48 11:48 14:49 RBC Hgb Hct MCHC RDW Lymph % (Auto) [place] % (Auto) Seg Neutrophils % PT 11.8 L APTT 20.4 L Sodium Potassium Chloride Creatinine Glucose POC Glucose 299 H Hemoglobin A1c 12.5 H Albumin Triglycerides Cholesterol LDL Cholesterol Direct Vitamin B12 02/28/19 02/28/19 02/28/19 16:28 17:47 21:12 RBC Hgb Hct MCHC RDW Lymph % (Auto) [place] % (Auto) Seg Neutrophils % PT APTT Sodium Potassium Chloride Creatinine Glucose POC Glucose 253 H 350 H > 500 H Hemoglobin A1c Albumin Triglycerides Cholesterol LDL Cholesterol Direct Vitamin B12 02/28/19 03/01/19 03/01/19 21:48 00:12 03:59 RBC Hgb 15.0 H Hct 43.2 H MCHC 35 H RDW 12.6 L Lymph % (Auto) 39.5 H [place] % (Auto) 7.5 H Seg Neutrophils % PT APTT Sodium Potassium Chloride Creatinine Glucose 567 H* POC Glucose 297 H Hemoglobin A1c Albumin Triglycerides Cholesterol LDL Cholesterol Direct Vitamin B12 03/01/19 03/01/19 03/01/19 03:59 07:29 12:14 RBC Hgb Hct MCHC RDW Lymph % (Auto) [place] % (Auto) Seg Neutrophils % PT APTT Sodium Potassium 3.0 L D Chloride Creatinine 0.5 L Glucose 202 H POC Glucose 201 H 403 H Hemoglobin A1c Albumin 3.7 L Triglycerides Cholesterol LDL Cholesterol Direct Vitamin B12 03/01/19 03/01/19 03/01/19 17:00 23:16 23:29 RBC Hgb Hct MCHC RDW Lymph % (Auto) [place] % (Auto) Seg Neutrophils % PT APTT Sodium Potassium Chloride Creatinine Glucose POC Glucose 171 H 283 H Hemoglobin A1c Albumin Triglycerides 251 H Cholesterol 265 H LDL Cholesterol Direct 201 H Vitamin B12 03/01/19 03/02/19 03/02/19 23:29 08:03 11:53 RBC Hgb Hct MCHC RDW Lymph % (Auto) [place] % (Auto) Seg Neutrophils % PT APTT Sodium Potassium Chloride Creatinine Glucose POC Glucose 129 H 298 H Hemoglobin A1c Albumin Triglycerides Cholesterol LDL Cholesterol Direct Vitamin B12 1047 H
[2019-03-02] MEDS ORDERED: WATER FOR INJ Sterile (PF) 10 ML ONE (14:44)
--- NOTE | 2019-03-02 16:01 | Cat Scan Report ---
CTA neck with and without contrast CLINICAL HISTORY: Transient ischemic attack. Technique: Multiple contiguous postcontrast axial CT images of the neck were obtained at 0.63 mm inte rvals. 3 plane MIP reconstructions were produced. Precontrast localizing images were also performed. All CT scans at this location are performed using the CT dose reduction for ALARA by means of automat ed exposure control. FINDINGS: There is calcified atherosclerotic plaque involving proximal internal carotid arteries bilaterally wi thout significant stenosis by NASCET criteria. The common carotid arteries are unremarkable. There is a component of the left vertebral artery which arises directly from the aortic arch; a devel opmental variant. This finding complexes with a more typical component of the vertebral artery at the C4-5 level. There is no second of focal narrowing of the left vertebral artery at. There is mild shazia rowing of the right vertebral artery at the C4 level related to the hypertrophic changes. Otherwise, the right vertebral artery is unremarkable. The arch of vessels are otherwise unremarkable. IMPRESSION: There is calcified plaque involving proximal internal carotid arteries bilaterally without significan t stenosis by NASCET criteria. There is a component of the left vertebral artery which arises directly from the aortic arch which re presents a developmental variant. Signer Name: Anthony Gamez MD Signed: 03/02/2019 3:56 PM Workstation Name: [id number]
--- NOTE | 2019-03-02 16:07 | Cat Scan Report ---
CTA head with and without IV contrast. CLINICAL HISTORY: Transient ischemic attack. Technique: Multiple contiguous postcontrast CT images of the head were obtained at 0.63 mm intervals. 3 plane MIP reconstructions were obtained. Precontrast localizing images were also performed. CT scan s at this location are performed using the CT dose reduction for ALARA by means of automated exposure control. FINDINGS: No previous exams available for comparison. There are small foci of calcification involving the distal internal carotid arteries without significant stenosis by NASCET criteria. The vertebral basilar system is unremarkable. No significant focal narrowing is seen involving the proximal cerebra l arteries or adjacent of branches at. Furthermore, there is no CTA evidence of intracranial aneurysm . The dural venous sinuses opacify with contrast. The findings correlate with the previous MRI of 04/05/2018 demonstrating a meningioma along the left f rontotemporal region. There is extensive cerebral white matter disease. IMPRESSION: There is mild calcification involving the distal internal carotid arteries. However, there is no sign ificant focal stenosis involving intracranial vessels. There is a 1.6 m meningioma along the lateral left frontotemporal region which corresponds with the p revious MRI. Signer Name: Anthony Gamez MD Signed: 03/02/2019 4:03 PM Workstation Name: [id number]
== END 2019-03-02 15:46 | disposition home or self-care (01) | DRG 69 ==
LOC: ED 11:01 → 4A 14:48
PROVIDERS: ADMIT Internal Medicine; ATTEND Hospitalist
DX: G45.9 Transient cerebral ischemic attack, unspecified (principal); E87.1 Hypo-osmolality and hyponatremia; I16.1 Hypertensive emergency; E87.6 Hypokalemia; E11.65 Type 2 diabetes mellitus with hyperglycemia; I10 Essential (primary) hypertension; R47.1 Dysarthria and anarthria; F32.9 Major depressive disorder, single episode, unspecified; Z60.2 Problems related to living alone; Z91.14 Patient's other noncompliance with medication regimen; Z88.0 Allergy status to penicillin; Z83.3 Family history of diabetes mellitus; Z79.84 Long term (current) use of oral hypoglycemic drugs; Z79.82 Long term (current) use of aspirin
CPT/HCPCS: 36415; 70450; 70496; 70498; 70551; 80053; 80061; 81001; 82607; 82947; 82962; 83036; 84443; 84484; 85025; 85610; 85730; 93005; 93010; 93308; 93321; 93325; 93880; 96374; G0378; A9270-GY; J1650; J1815; J2060; J7030; Q9967

== ENCOUNTER 2019-03-04 17:47 | Inpatient (IN) | payer MEDICARE ==
--- NOTE | 2019-03-04 17:58 | Event Note ---
ED Screening Note Date of service: 03/04/19 Time: 17:56 ED Screening Note: This is a 79 y.o. F. that presents to the ER with slurred speech, weakness, and incontinent. This initial assessment/diagnostic orders/clinical plan/treatment(s) is/are subject to change based on patients health status, clinical progression and re- assessment by fellow clinical providers in the ED. Further treatment and workup at subsequent clinical providers discretion. Patient/guardian urged not to elope from the ED as their condition may be serious if not clinically assessed and managed. Initial orders include: Labs, CT of head, and EKG
[2019-03-04] MEDS ORDERED: KEPPRA 1,000 MG in NACL 0.9% 100 ML IV ONE (18:29)
--- NOTE | 2019-03-04 18:31 | Emergency Department Report ---
ED Neuro Deficit HPI - General Chief Complaint: Neuro Symptoms/Deficit Stated Complaint: POSS STROKE/SLURRED SPEECH Time Seen by Provider: 03/04/19 17:55 Source: family Mode of arrival: Wheelchair Limitations: Altered Mental Status - History of Present Illness Initial Comments: [facility] Tele[facility]urology Consult [facility] Date of Service: 03/04/2019 18:00:08 Impression: Altered mental status Metrics: Last Known Well: 03/04/2019 12:00:00 [employer] Notification Time: 03/04/2019 17:59:06 Arrival Time: 03/04/2019 17:47:00 Stamp Time: 03/04/2019 18:00:08 Time First Login Attempt: 03/04/2019 18:03:41 Video Start Time: 03/04/2019 18:03:41 Symptoms: slurred speech, AMS and incontinence NIHSS Start Assessment Time: 03/04/2019 18:12:00 Patient is not a candidate for tPA. Patient was not deemed candidate for tPA thrombolytics because of Last Well Known above 4.5 hours. Video End Time: 03/04/2019 18:28:04 CT head showed no acute hemorrhage or acute core infarct. CT head was reviewed. Advanced imaging was not obtained as the presentation was not suggestive of Large Vessel Occlusive Disease. ER physician notified of the decision on thrombolytics management. Comments: Most likely seizure. This is the same as her prior admission on 02/28/19 for which she had a negative stroke work up. With the incontinence and her encephalopathic appearance I feel this is most likely seizure. Load with Keppra 20mg/kg or fosphenytoin 20mg/kg EEG seizures precautions Disposition: Follow up with Teleneurology Follow up Sign Out: Discussed with Emergency Department Provider History of Present Illness: Patient is a 79 years old Female. Patient was brought by EMS for symptoms of slurred speech, AMS and incontinence 79 yo F with histroy of htn, dm who presented with slurred speech, generalized weakness and incontinence. She was last seen at her baseline around 14:00. Her family states that after lunch she took her medication and they were paying bills and then the patient just looked at her blankly and was not responding. She had not been talking and then was babbling and not making sense. She is not sure when she was incontinent. She states that she did go into the bathroom at some point. These events of not staring and speaking abnormally are the same as her prior presentation on 02/28/19. Per chart she presented with similar symptoms on 02/28/19 and had a negative stroke work u consisting of CTA head and neck, MRI, and ECHO. CT head showed no acute hemorrhage or acute core infarct. CT head was reviewed. Examination: 1A: Level of Consciousness - Alert; keenly responsive + 0 1B: Ask Month and Age - Aphasic + 2 1C: Blink Eyes & Squeeze Hands - Performs 0 Tasks + 2 2: Test Horizontal Extraocular Movements - Normal + 0 3: Test Visual Anguiano - No Visual Loss + 0 4: Test Facial Palsy (Use Grimace if Obtunded) - Normal symmetry + 0 5A: Test Left Arm Motor Drift - No Drift for 10 Seconds + 0 5B: Test Right Arm Motor Drift - No Drift for 10 Seconds + 0 6A: Test Left Leg Motor Drift - No Drift for 5 Seconds + 0 6B: Test Right Leg Motor Drift - No Drift for 5 Seconds + 0 7: Test Limb Ataxia (FNF/Heel-Mata) - No Ataxia + 0 8: Test Sensation - Normal; No sensory loss + 0 9: Test Language/Aphasia - Mute/Global Aphasia: No Usable Speech/Auditory Comprehension + 3 10: Test Dysarthria - Mild-Moderate Dysarthria: Slurring but can be understood + 1 11: Test Extinction/Inattention - No abnormality + 0 NIHSS Score: 8 Patient was informed the Neurology Consult would happen via TeleHealth consult by way of interactive audio and video telecommunications and consented to receiving care in this manner. Due to the immediate potential for life-threatening deterioration due to underlying acute neurologic illness, I spent 35 minutes providing critical care. This time includes time for face to face visit via telemedicine, review of medical records, imaging studies and discussion of findings with providers, the patient and/or family. Dr Jacque Chiang [facility] - Related Data Home Medications: Previous Rx's Medication Instructions Recorded Last Taken Type Aspirin [Aspirin BABY CHEW TAB] 81 mg PO QDAY #30 tab.chew 03/02/19 Unknown Rx AtorvaSTATin [Lipitor] 40 mg PO QHS #30 tablet 03/02/19 Unknown Rx Carvedilol [Coreg] 6.25 mg PO BID #60 tablet 03/02/19 Unknown Rx Famotidine [Pepcid] 20 mg PO BID #60 tablet 03/02/19 Unknown Rx Insulin NPH/Regular [NovoLIN 70/30] 20 unit SUB-Q BIDDIAB 30 Days 03/02/19 Unknown Rx units Losartan [Cozaar] 100 mg PO QDAY #30 tablet 03/02/19 Unknown Rx Allergies/Adverse Reactions: Allergies Allergy/AdvReac Type Severity Reaction Status Date / Time Penicillins Allergy Unknown Verified 01/21/15 18:11 ED Review of Systems ROS: Stated complaint: POSS STROKE/SLURRED SPEECH Other details as noted in HPI ED Past Medical Hx - Past Medical History Hx Diabetes: Yes - Surgical History Additional Surgical History: biopsy - Social History Smoking Status: Never Smoker - Medications Home Medications: Home Medications Medication Instructions Recorded Confirmed Last Taken Type Aspirin [Aspirin BABY CHEW TAB] 81 mg PO QDAY #30 tab.chew 03/02/19 Unknown Rx AtorvaSTATin [Lipitor] 40 mg PO QHS #30 tablet 03/02/19 Unknown Rx Carvedilol [Coreg] 6.25 mg PO BID #60 tablet 03/02/19 Unknown Rx Famotidine [Pepcid] 20 mg PO BID #60 tablet 03/02/19 Unknown Rx Insulin NPH/Regular [NovoLIN 70/30] 20 unit SUB-Q BIDDIAB 30 Days 03/02/19 Unknown Rx units Losartan [Cozaar] 100 mg PO QDAY #30 tablet 03/02/19 Unknown Rx ED Neuro Physical Exam - General Limitations: Altered Mental Status Suspected Stroke: No Critical care attestation.: If time is entered above; I have spent that time in minutes in the direct care of this critically ill patient, excluding procedure time. ED Disposition Clinical Impression: Seizure Disposition: OP ADMIT IP TO THIS HOSP Is pt being admited?: Yes Condition: Stable
--- NOTE | 2019-03-04 18:39 | Emergency Department Report ---
ED Altered Mental Status HPI - General Chief Complaint: Neuro Symptoms/Deficit Stated Complaint: POSS STROKE/SLURRED SPEECH Time Seen by Provider: 03/04/19 17:55 Source: family Mode of arrival: Wheelchair Limitations: Altered Mental Status - History of Present Illness Initial Comments: 79 yo F brought in by friend for altered mental status. Last known well time at 12 noon. Friend states this afternoon, pt began acting differently, as if she did not understand what she was saying to her. Friend also states when pt would respond, she was speaking incoherently, as if she was making up words. Friend was unable to understand what pt was saying. Friend denies witnessing any seizure-like activity, but states pt was in another room napping prior to symptom onset. Pt may have also had bowel incontinence. Pt recently discharged a few days ago following normal stroke work up. Pt presented with similar symptoms. Was diagnosed with TIA. MD Complaint: altered mental status -: This afternoon Severity: moderate Consistency of Symptoms: constant Context: unknown - Related Data Previous Rx's Medication Instructions Recorded Last Taken Type Aspirin [Aspirin BABY CHEW TAB] 81 mg PO QDAY #30 tab.chew 03/02/19 Unknown Rx AtorvaSTATin [Lipitor] 40 mg PO QHS #30 tablet 03/02/19 Unknown Rx Carvedilol [Coreg] 6.25 mg PO BID #60 tablet 03/02/19 Unknown Rx Famotidine [Pepcid] 20 mg PO BID #60 tablet 03/02/19 Unknown Rx Insulin NPH/Regular [NovoLIN 70/30] 20 unit SUB-Q BIDDIAB 30 Days 03/02/19 Unknown Rx units Losartan [Cozaar] 100 mg PO QDAY #30 tablet 03/02/19 Unknown Rx Allergies Allergy/AdvReac Type Severity Reaction Status Date / Time Penicillins Allergy Unknown Verified 01/21/15 18:11 ED Review of Systems ROS: Stated complaint: POSS STROKE/SLURRED SPEECH Other details as noted in HPI Comment: Unobtainable due to pts medical conditions ED Past Medical Hx - Past Medical History Hx Diabetes: Yes - Surgical History Additional Surgical History: biopsy - Social History Smoking Status: Never Smoker - Medications Home Medications: Home Medications Medication Instructions Recorded Confirmed Last Taken Type Aspirin [Aspirin BABY CHEW TAB] 81 mg PO QDAY #30 tab.chew 03/02/19 Unknown Rx AtorvaSTATin [Lipitor] 40 mg PO QHS #30 tablet 03/02/19 Unknown Rx Carvedilol [Coreg] 6.25 mg PO BID #60 tablet 03/02/19 Unknown Rx Famotidine [Pepcid] 20 mg PO BID #60 tablet 03/02/19 Unknown Rx Insulin NPH/Regular [NovoLIN 70/30] 20 unit SUB-Q BIDDIAB 30 Days 03/02/19 Unknown Rx units Losartan [Cozaar] 100 mg PO QDAY #30 tablet 03/02/19 Unknown Rx ED Physical Exam - General Limitations: Altered Mental Status General appearance: alert, in no apparent distress - Head Head exam: Present: atraumatic, normocephalic - Eye Eye exam: Present: normal appearance, PERRL, EOMI - ENT ENT exam: Present: mucous membranes moist - Neck Neck exam: Present: normal inspection - Respiratory Respiratory exam: Present: normal lung sounds bilaterally. Absent: respiratory distress - Cardiovascular Cardiovascular Exam: Present: regular rate, normal rhythm - GI/Abdominal GI/Abdominal exam: Present: soft. Absent: distended, tenderness - Extremities Exam Extremities exam: Present: normal inspection - Neurological Exam Neurological exam: Present: alert - Psychiatric Psychiatric exam: Present: normal affect, normal mood - Skin Skin exam: Present: warm, dry, intact, normal color. Absent: rash - Level of Consciousness 1a. Level of Consciousness: alert/keenly responsive - LOC Questions 1b. LOC Questions: aphasic - LOC Command 1c. LOC Commands: performs no tasks correctly - Best Gaze 2. Best Gaze: normal - Visual 3. Visual: no visual loss - Facial Palsy 4. Facial Palsy: normal symmetrical movement - Motor Arm 5a. Motor Arm Left: no drift 5b. Motor Arm Right: no drift - Motor Leg 6a. Motor Leg Left: no drift 6b. Motor Leg Right: no drift - Limb Ataxia 7. Limb Ataxia: absent - Sensory 8. Sensory: normal - Best Language 9. Best Language: mute/global aphasia - Dysarthria 10. Dysarthria: mild/moderate dysarthria - Extinction and Inattention 11. Extinction/Inattention: no abnormality - Scoring Total Score: 8 Stroke Severity: Moderate Stroke ED Course Vital Signs 03/04/19 03/04/19 03/04/19 18:30 18:46 19:00 Pulse Rate 91 H 91 H 93 H Respiratory 18 13 17 Rate Blood Pressure 161/83 161/83 196/75 O2 Sat by Pulse 99 78 L 100 Oximetry 03/04/19 03/04/19 03/04/19 19:15 19:31 19:45 Pulse Rate 103 H 100 H 105 H Respiratory 19 21 32 H Rate Blood Pressure 191/99 191/99 O2 Sat by Pulse 92 98 96 Oximetry 03/04/19 03/04/19 03/04/19 20:45 21:00 21:15 Pulse Rate 99 H 87 90 Respiratory 19 18 18 Rate Blood Pressure 190/101 196/85 198/84 O2 Sat by Pulse 97 98 97 Oximetry 03/04/19 03/04/19 03/04/19 21:30 21:45 22:00 Pulse Rate 111 H 106 H 111 H Respiratory 12 21 17 Rate Blood Pressure 184/88 184/88 172/79 O2 Sat by Pulse 98 99 98 Oximetry - Reevaluation(s) Reevaluation #1: 03/04/19 20:03 Pt confused. Attempting to leave, get out of bed. Friend reports pt was given a medication for during last admission that seemed to cause her to be confused afterward. Chart reviewed by me, and pt was given ativan to help her calm down. Will try haldol instead at this time. - Lab Data Result diagrams: 03/04/19 18:39 03/04/19 18:39 Lab Results 03/04/19 03/04/19 03/04/19 Range/Units 18:39 18:39 18:39 WBC 7.2 (4.5-11.0) K/mm3 RBC 4.79 (3.65-5.03) M/mm3 Hgb 14.7 H (10.1-14.3) gm/dl Hct 42.0 (30.3-42.9) % MCV 88 (79-97) fl MCH 31 (28-32) pg MCHC 35 H (30-34) % RDW 13.2 (13.2-15.2) % Plt Count 162 (140-440) K/mm3 Lymph % (Auto) 23.6 (13.4-35.0) % [place] % (Auto) 5.8 (0.0-7.3) % Eos % (Auto) 0.4 (0.0-4.3) % Baso % (Auto) 1.2 (0.0-1.8) % Lymph # 1.7 (1.2-5.4) K/mm3 [place] # 0.4 (0.0-0.8) K/mm3 Eos # 0.0 (0.0-0.4) K/mm3 Baso # 0.1 (0.0-0.1) K/mm3 Seg Neutrophils % 69.0 (40.0-70.0) % Seg Neutrophils # 5.0 (1.8-7.7) K/mm3 PT 12.6 (12.2-14.9) Sec. INR 0.97 (0.87-1.13) APTT 20.9 L (24.2-36.6) Sec. Thrombin Time (15.1-19.6) Sec. Sodium 136 L (137-145) mmol/L Potassium 4.2 D (3.6-5.0) mmol/L Chloride 95.7 L (98-107) mmol/L Carbon Dioxide 25 (22-30) mmol/L Anion Gap 20 mmol/L BUN 21 H (7-17) mg/dL Creatinine 1.0 D (0.7-1.2) mg/dL Estimated GFR 54 ml/min BUN/Creatinine Ratio 21 % Glucose 418 H (65-100) mg/dL Calcium 9.5 (8.4-10.2) mg/dL Troponin T < 0.010 (0.00-0.029) ng/mL 03/04/19 Range/Units 18:39 WBC (4.5-11.0) K/mm3 RBC (3.65-5.03) M/mm3 Hgb (10.1-14.3) gm/dl Hct (30.3-42.9) % MCV (79-97) fl MCH (28-32) pg MCHC (30-34) % RDW (13.2-15.2) % Plt Count (140-440) K/mm3 Lymph % (Auto) (13.4-35.0) % [place] % (Auto) (0.0-7.3) % Eos % (Auto) (0.0-4.3) % Baso % (Auto) (0.0-1.8) % Lymph # (1.2-5.4) K/mm3 [place] # (0.0-0.8) K/mm3 Eos # (0.0-0.4) K/mm3 Baso # (0.0-0.1) K/mm3 Seg Neutrophils % (40.0-70.0) % Seg Neutrophils # (1.8-7.7) K/mm3 PT (12.2-14.9) Sec. INR (0.87-1.13) APTT (24.2-36.6) Sec. Thrombin Time 17.2 (15.1-19.6) Sec. Sodium (137-145) mmol/L Potassium (3.6-5.0) mmol/L Chloride (98-107) mmol/L Carbon Dioxide (22-30) mmol/L Anion Gap mmol/L BUN (7-17) mg/dL Creatinine (0.7-1.2) mg/dL Estimated GFR ml/min BUN/Creatinine Ratio % Glucose (65-100) mg/dL Calcium (8.4-10.2) mg/dL Troponin T (0.00-0.029) ng/mL - EKG Data -: EKG Interpreted by Me EKG shows normal: sinus rhythm, axis, intervals, QRS complexes, ST-T waves Rate: normal Interpretation: no acute changes - Radiology Data Radiology results: report reviewed, image reviewed - Medical Decision Making 79 yo F w/ altered mental status, recently discharged from this facility 2 days ago with similar presentation. MRI was negative for CVA during that admission. Today pt seemed to be confused, unable to comprehend what her friend was asking of her, also pt's responses were unintelligible. Bowel incontinence also reported. CT Head today is negative. Pt seen by teleneurologist who felt that this may be a seizure w/ prolonged postictal period. Keppra given. Neurologist recommends readmission for EEG. Pt became more agitated, attempting to leave, hanging her legs off of the side rails. Elevated BP at this time likely due to her agitation. Haldol 2.5 mg given which helped the agitation and BP as well. Pt admitted to hospitalist for further management. - Differential Diagnosis seizure, CVA Critical care attestation.: If time is entered above; I have spent that time in minutes in the direct care of this critically ill patient, excluding procedure time. ED Disposition Clinical Impression: Seizure, Hyperglycemia due to type 2 diabetes mellitus Disposition: DC-09 OP ADMIT IP TO THIS HOSP Is pt being admited?: Yes Condition: Stable
--- NOTE | 2019-03-04 18:41 | Cat Scan Report ---
CT BRAIN: 03/04/2019 INDICATION / CLINICAL INFORMATION: Stroke COMPARISON: Brain MRI 03/01/2019 FINDINGS: BRAIN/INTRACRANIAL STRUCTURES: Unenhanced CT images of the brain were obtained and compared to the MR I from 3 days earlier. There has been no change. Again seen is prominent age-related atrophic change and chronic white matter hypoattenuation. The small left temporal region meningioma is also again noted. There is no CT evidence of acute ischemic injury, hemorrhage, or mass. There are no abnormal extra-ax ial fluid collections EXTRACRANIAL STRUCTURES: Unremarkable. IMPRESSION: No acute abnormality. No change when compared to the MRI from 3 days earlier. Chronic and age-related changes. Stable left temporal region meningioma. CS report [address] scans at this location are performed using dose reduction to ALARA by means of automated expos ure control. Signer Name: Angelito Sanchez MD Signed: 03/04/2019 6:37 PM Workstation Name: [id number]
[2019-03-04 18:58] LABS: Basophils # (Auto) 0.1 K/mm3 (0.0-0.1); Basophils % (Auto) 1.2 % (0.0-1.8); Eosinophils % (Auto) 0.4 % (0.0-4.3); Hemoglobin 14.7 gm/dl (10.1-14.3); Lymphocytes # (Auto) 1.7 K/mm3 (1.2-5.4); Lymphocytes % (Auto) 23.6 % (13.4-35.0); Mean Corpuscular HGB Conc 35 % (30-34); Mean Corpuscular Volume 88 fl (79-97); Monocytes # (Auto) 0.4 K/mm3 (0.0-0.8); Monocytes % (Auto) 5.8 % (0.0-7.3); Platelet Count 162 K/mm3 (140-440); Red Blood Count 4.79 M/mm3 (3.65-5.03); Red Cell Distribution Width 13.2 % (13.2-15.2)
[2019-03-04 19:07] LABS: INR 0.97 (0.87-1.13)
[2019-03-04 19:08] LABS: Partial Thromboplastin Time 20.9 Sec. (24.2-36.6)
[2019-03-04 19:12] LABS: BUN/Creatinine Ratio 21; Blood Urea Nitrogen 21 mg/dL (7-17); Calcium 9.5 mg/dL (8.4-10.2); Hemolysis Index 24
[2019-03-04] MEDS ORDERED: HumuLIN R IV ONE (19:48)
[2019-03-04] MEDS ORDERED: SODIUM CHLORIDE FLUSH SYRINGE 10 ML IV PRN (19:52)
[2019-03-04] MEDS ORDERED: ZOFRAN IV PRN (19:52)
--- NOTE | 2019-03-04 20:04 | History and Physical Report ---
History of Present Illness Date of examination: 03/04/19 Date of admission: 03/04/2019 Chief complaint: AMS, Seizure History of present illness: Pt is a 79 year old female with PMHx of prior TIA/CVA, HTN, DM type II and depression who was brought to the ER brought for altered mental status. According to patient's friend she was home taking a nap when she woke up, her speech was coherent, broken and slurred, her behavior was unusual, she was acting confused as she wasn't understanding anything said to her. Pt's friend also reports seizure-like activity, she was incontinent or bladder which according to her friend was unusual to her. Review of pt's records indicates that she was recently admitted to the hospital with similar symptoms and was diagnosed with of TIA/CVA. Neurology was consulted in the ER and recommended admission for EEG, to r/o seizure activities. Past History Past Medical History: diabetes, hypertension, stroke, other (Temporal meningioma) Past Surgical History: No surgical history Social history: no significant social history, Lives alone Family history: no significant family history Medications and Allergies Allergies Allergy/AdvReac Type Severity Reaction Status Date / Time Penicillins Allergy Unknown Verified 01/21/15 18:11 Home Medications Medication Instructions Recorded Confirmed Last Taken Type Aspirin [Aspirin BABY CHEW TAB] 81 mg PO QDAY #30 tab.chew 03/02/19 Unknown Rx AtorvaSTATin [Lipitor] 40 mg PO QHS #30 tablet 03/02/19 Unknown Rx Carvedilol [Coreg] 6.25 mg PO BID #60 tablet 03/02/19 Unknown Rx Famotidine [Pepcid] 20 mg PO BID #60 tablet 03/02/19 Unknown Rx Insulin NPH/Regular [NovoLIN 70/30] 20 unit SUB-Q BIDDIAB 30 Days 03/02/19 Unknown Rx units Losartan [Cozaar] 100 mg PO QDAY #30 tablet 03/02/19 Unknown Rx Active Meds: Active Medications Acetaminophen (Tylenol) 650 mg PO Q4H PRN PRN Reason: Pain MILD(1-3)/Fever >100.5/SMYTH Famotidine (Pepcid) 20 mg IV BID MARY GRACE Sodium Chloride (Nacl 0.9% 1000 Ml) 1,000 mls @ 100 mls/hr IV DIRECT MARY GRACE Ondansetron HCl (Zofran) 4 mg IV Q8H PRN PRN Reason: Nausea And Vomiting Sodium Chloride (Sodium Chloride Flush Syringe 10 Ml) 10 ml IV BID MARY GRACE Sodium Chloride (Sodium Chloride Flush Syringe 10 Ml) 10 ml IV PRN PRN PRN Reason: LINE FLUSH Review of Systems ROS unobtainable: due to mental status Exam - Constitutional Vitals: Temp Pulse Resp BP Pulse Ox 100 H 21 191/99 98 03/04/19 19:31 03/04/19 19:31 03/04/19 19:31 03/04/19 19:31 General appearance: Present: mild distress - EENT Eyes: Present: EOM intact ENT: other (unable to evaluate) - Neck Neck: Present: supple - Respiratory Respiratory effort: normal Respiratory: bilateral: CTA - Cardiovascular Rhythm: regular - Extremities Extremities: no ischemia, No edema Peripheral Pulses: within normal limits - Abdominal General gastrointestinal: Present: soft, non-tender, non-distended Female genitourinary: Present: deferred - Rectal Rectal Exam: deferred - Integumentary Integumentary: Present: clear, warm, dry - Musculoskeletal Musculoskeletal: strength equal bilaterally - Psychiatric Psychiatric: other (unable to evaluate) - Neurologic Neurologic: moves all extremities Results - Labs CBC & Chem 7: 03/05/19 04:44 03/05/19 04:44 Labs: Laboratory Last Values WBC 7.2 K/mm3 (4.5-11.0) 03/04/19 18:39 RBC 4.79 M/mm3 (3.65-5.03) 03/04/19 18:39 Hgb 14.7 gm/dl (10.1-14.3) H 03/04/19 18:39 Hct 42.0 % (30.3-42.9) 03/04/19 18:39 MCV 88 fl (79-97) 03/04/19 18:39 MCH 31 pg (28-32) 03/04/19 18:39 MCHC 35 % (30-34) H 03/04/19 18:39 RDW 13.2 % (13.2-15.2) 03/04/19 18:39 Plt Count 162 K/mm3 (140-440) 03/04/19 18:39 Lymph % (Auto) 23.6 % (13.4-35.0) 03/04/19 18:39 [place] % (Auto) 5.8 % (0.0-7.3) 03/04/19 18:39 Eos % (Auto) 0.4 % (0.0-4.3) 03/04/19 18:39 Baso % (Auto) 1.2 % (0.0-1.8) 03/04/19 18:39 Lymph # 1.7 K/mm3 (1.2-5.4) 03/04/19 18:39 [place] # 0.4 K/mm3 (0.0-0.8) 03/04/19 18:39 Eos # 0.0 K/mm3 (0.0-0.4) 03/04/19 18:39 Baso # 0.1 K/mm3 (0.0-0.1) 03/04/19 18:39 Seg Neutrophils % 69.0 % (40.0-70.0) 03/04/19 18:39 Seg Neutrophils # 5.0 K/mm3 (1.8-7.7) 03/04/19 18:39 PT 12.6 Sec. (12.2-14.9) 03/04/19 18:39 INR 0.97 (0.87-1.13) 03/04/19 18:39 APTT 20.9 Sec. (24.2-36.6) L 03/04/19 18:39 17.2 Sec. (15.1-19.6) 03/04/19 18:39 Sodium 136 mmol/L (137-145) L 03/04/19 18:39 Potassium 4.2 mmol/L (3.6-5.0) D 03/04/19 18:39 Chloride 95.7 mmol/L (98-107) L 03/04/19 18:39 Carbon Dioxide 25 mmol/L (22-30) 03/04/19 18:39 20 mmol/L 03/04/19 18:39 BUN 21 mg/dL (7-17) H 03/04/19 18:39 1.0 mg/dL (0.7-1.2) D 03/04/19 18:39 Estimated GFR 54 ml/min 03/04/19 18:39 21 % 03/04/19 18:39 Glucose 418 mg/dL (65-100) H 08/09/19 18:39 Calcium 9.5 mg/dL (8.4-10.2) 03/04/19 18:39 < 0.010 ng/mL (0.00-0.029) 03/04/19 18:39 Assessment and Plan Assessment and plan: 1. Altered mental status 2. H/o TIA/CVA 3. Possible seizure-like activities 4. DM type II 5. Accelerated hypertension 6. H/o Depression 7. Temporal meningioma (stable per CT) Plan: Admit to admit Seizure precaution Consult neurology for evaluation Neuro check every 2 hours EEG in a.m. per neurology Accu-Chek ACHS with insulin sliding-scale Resume home meds DVT prophylaxis with Lovenox Advance Directives: Yes VTE prophylaxis?: Chemical Plan of care discussed with patient/family: Yes
[2019-03-04] MEDS ORDERED: HALDOL IM ONE (20:06)
[2019-03-04] MEDS ORDERED: HALDOL ONE (20:07)
[2019-03-04] MEDS ORDERED: HumuLIN R ONE (20:50)
[2019-03-04] MEDS ORDERED: APRESOLINE ONE (21:30)
[2019-03-04] MEDS ORDERED: NACL 0.9% 1000 ML 1,000 ML ONE (21:32)
[2019-03-04] MEDS: NACL 0.9% 1000 ML 1,000 ML IV SCH (21:34)
[2019-03-04] MEDS: APRESOLINE IV PRN (21:34)
[2019-03-04] MEDS: PEPCID IV SCH (23:50)
[2019-03-04] MEDS: SODIUM CHLORIDE FLUSH SYRINGE 10 ML IV SCH (23:50)
[2019-03-05 05:49] LABS: Basophils # (Auto) 0.1 K/mm3 (0.0-0.1); Basophils % (Auto) 0.5 % (0.0-1.8); Eosinophils % (Auto) 0.1 % (0.0-4.3); Hematocrit 44.6 % (30.3-42.9); Hemoglobin 15.1 gm/dl (10.1-14.3); Lymphocytes # (Auto) 2.4 K/mm3 (1.2-5.4); Lymphocytes % (Auto) 22.3 % (13.4-35.0); Mean Corpuscular HGB Conc 34 % (30-34); Mean Corpuscular Volume 88 fl (79-97); Monocytes # (Auto) 0.8 K/mm3 (0.0-0.8); Monocytes % (Auto) 7.8 % (0.0-7.3); Platelet Count 169 K/mm3 (140-440); Red Blood Count 5.08 M/mm3 (3.65-5.03)
[2019-03-05 05:53] LABS: BUN/Creatinine Ratio 17; Blood Urea Nitrogen 12 mg/dL (7-17); Hemolysis Index 8
[2019-03-05] MEDS: APRESOLINE IV PRN (08:33)
[2019-03-05] MEDS: NACL 0.9% 1000 ML 1,000 ML IV SCH ×2 (08:37→19:19)
[2019-03-05] MEDS: PEPCID IV SCH (09:46)
[2019-03-05] MEDS: SODIUM CHLORIDE FLUSH SYRINGE 10 ML IV SCH ×2 (09:46→22:00)
--- NOTE | 2019-03-05 12:39 | Progress Note ---
Subjective Date of service: 03/05/19 Interval history: I looked at the CT last evening during the stroke alert... no bleed or acute edema... patient is in delirium and very confused etiology being worked up only answers simple questions and no focal weakness..., will try to speak to family Objective - Vital Sign Vital Signs - 12hr 03/05/19 03/05/19 03/05/19 03:33 06:17 08:22 Temperature 98.8 F 98.6 F Pulse Rate 101 H 108 H Respiratory 20 18 16 Rate Blood Pressure 162/72 195/87 Blood Pressure [Left] O2 Sat by Pulse 98 93 Oximetry 03/05/19 03/05/19 03/05/19 08:33 08:37 09:49 Temperature Pulse Rate 105 H 104 H Respiratory 18 Rate Blood Pressure 195/87 Blood Pressure 112/46 [Left] O2 Sat by Pulse 9 L 95 Oximetry - Laboratory Findings CBC and BMP: 03/05/19 04:44 03/05/19 04:44 Abnormal Lab Findings: Abnormal Labs 03/04/19 03/04/19 03/04/19 18:39 18:39 18:39 RBC Hgb 14.7 H Hct MCHC 35 H RDW [place] % (Auto) APTT 20.9 L Sodium 136 L Potassium Chloride 95.7 L Carbon Dioxide BUN 21 H Glucose 418 H POC Glucose 03/04/19 03/05/19 03/05/19 21:40 04:44 04:44 RBC 5.08 H Hgb 15.1 H Hct 44.6 H MCHC RDW 13.0 L [place] % (Auto) 7.8 H APTT Sodium 134 L Potassium 3.1 L D Chloride 93.3 L Carbon Dioxide 20 L BUN Glucose 275 H POC Glucose 256 H
[2019-03-05] MEDS ORDERED: D50W (25GM) Syringe IV PRN (15:52)
--- NOTE | 2019-03-05 17:49 | Progress Note ---
Subjective Date of service: 03/05/19 Interval history: I did speak to neighbors/ friends that know her very well... there are no immediate relatives/ children/ spouse etc means there are no immediate contacts other than friends... Objective - Vital Sign Vital Signs - 12hr 03/05/19 03/05/19 03/05/19 06:17 08:22 08:33 Temperature 98.6 F Pulse Rate 108 H 105 H Respiratory 18 16 Rate Blood Pressure 195/87 195/87 Blood Pressure [Left] O2 Sat by Pulse 93 Oximetry 03/05/19 03/05/19 03/05/19 08:37 09:49 11:51 Temperature 98.7 F Pulse Rate 104 H 104 H Respiratory 18 16 Rate Blood Pressure 159/77 Blood Pressure 112/46 [Left] O2 Sat by Pulse 9 L 95 98 Oximetry 03/05/19 13:43 Temperature Pulse Rate Respiratory 18 Rate Blood Pressure Blood Pressure [Left] O2 Sat by Pulse Oximetry - Laboratory Findings CBC and BMP: 03/05/19 04:44 03/05/19 04:44 Abnormal Lab Findings: Abnormal Labs 03/04/19 03/04/19 03/04/19 18:39 18:39 18:39 RBC Hgb 14.7 H Hct MCHC 35 H RDW [place] % (Auto) APTT 20.9 L Sodium 136 L Potassium Chloride 95.7 L Carbon Dioxide BUN 21 H Glucose 418 H POC Glucose 03/04/19 03/05/19 03/05/19 21:40 04:44 04:44 RBC 5.08 H Hgb 15.1 H Hct 44.6 H MCHC RDW 13.0 L [place] % (Auto) 7.8 H APTT Sodium 134 L Potassium 3.1 L D Chloride 93.3 L Carbon Dioxide 20 L BUN Glucose 275 H POC Glucose 256 H
[2019-03-05] MEDS: HumaLOG SUB-Q SCH ×2 (17:57→21:39)
--- NOTE | 2019-03-05 18:16 | Consultation ---
HISTORY OF PRESENT ILLNESS: A 79-year-old white female admitted to [facility] throughout the Emergency Room. The patient was admitted as a stroke alert. ED documentation reveals that when the patient presented, she was initially seen for possibility of having a stroke. She had slurred speech, was confused, was felt not to be a candidate for thrombolytics because she was beyond the 4-1/2 hour time. The patient was thought to have had by history being in the hospital previously altered mental state, came on suddenly. She was incoherent and not speaking and not acting like herself. She had been taking medication, insulin, losartan, aspirin, Lipitor, carvedilol. When she presented to the hospital, her glucose was 418 and her sodium is 136. PHYSICAL EXAMINATION: My examination revealed that she was alert, but somewhat agitated. She is on 4-point restraints, does follow simple commands only. Ocular movements are full. Current blood pressure is 188/84. 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 Movements are symmetrical. Cranial nerves are intact. No meningismus present. No seizure activity noted. IMPRESSION: This patient's examination shows a toxic delirium. Obviously, one thing that I am noticing is that she has extremely high blood sugar of 418. There is a history of her having an MRI scan of the brain from previous an admission. I will try to review this. I do not have access to it on her current medical record, but we will make an attempt to find this and review it although it says she has a small right-sided meningioma. Also try to speak to family members. At this point, this appears to be metabolic encephalopathy. I do not see evidence to suggest acute stroke. I did feel from personal review of her CT scan that there is a great deal of atrophy, but we will speak to family members as whether there was a dementing process before this occurred. JOB# [id number] CECILLE/JENNIFER
[2019-03-05] MEDS: COREG PO SCH (21:37)
[2019-03-05] MEDS: PEPCID PO SCH (21:37)
[2019-03-06] MEDS: HumaLOG SUB-Q SCH ×4 (09:02→22:49)
[2019-03-06] MEDS: COZAAR PO SCH (09:56)
[2019-03-06] MEDS: COREG PO SCH ×2 (09:58→22:49)
[2019-03-06] MEDS: BABY ASPIRIN PO SCH (09:58)
[2019-03-06] MEDS: PEPCID PO SCH ×2 (09:58→22:49)
--- NOTE | 2019-03-06 12:41 | Progress Note ---
Subjective Date of service: 03/06/19 Interval history: certainly better MRI and EEG tomorrow I am suspected diabetic seizure patient alert/ eating does not appear demented at this point Objective - Vital Sign Vital Signs - 12hr 03/06/19 03/06/19 03/06/19 04:14 08:25 09:56 Temperature 97.7 F 98.1 F Pulse Rate 76 79 78 Respiratory 16 20 Rate Blood Pressure 141/71 148/75 148/75 O2 Sat by Pulse 96 95 Oximetry 03/06/19 03/06/19 09:58 10:00 Temperature Pulse Rate 78 77 Respiratory 18 Rate Blood Pressure 148/75 O2 Sat by Pulse 98 Oximetry - Laboratory Findings CBC and BMP: 03/05/19 04:44 03/05/19 04:44 Abnormal Lab Findings: Abnormal Labs 03/04/19 03/04/19 03/04/19 18:39 18:39 18:39 RBC Hgb 14.7 H Hct MCHC 35 H RDW [place] % (Auto) APTT 20.9 L Sodium 136 L Potassium Chloride 95.7 L Carbon Dioxide BUN 21 H Glucose 418 H POC Glucose Hemoglobin A1c 03/04/19 03/05/19 03/05/19 21:40 04:44 04:44 RBC 5.08 H Hgb 15.1 H Hct 44.6 H MCHC RDW 13.0 L [place] % (Auto) 7.8 H APTT Sodium 134 L Potassium 3.1 L D Chloride 93.3 L Carbon Dioxide 20 L BUN Glucose 275 H POC Glucose 256 H Hemoglobin A1c 03/06/19 04:29 RBC Hgb Hct MCHC RDW [place] % (Auto) APTT Sodium Potassium Chloride Carbon Dioxide BUN Glucose POC Glucose Hemoglobin A1c 11.8 H
[2019-03-06] MEDS: SODIUM CHLORIDE FLUSH SYRINGE 10 ML IV SCH ×2 (16:07→23:03)
--- NOTE | 2019-03-06 16:45 | Progress Note ---
Assessment and Plan Assessment and plan: 79-year-old woman presenting to the hospital altered mental status, apparently patient became altered after she received Ativan for an MRI and previous admission Past medical history; hypertension, diabetes, stroke, temporal meningioma acute metabolic/toxic encephalopathy Frequent reorientation, avoid benzodiazepines as they make her confusion worse -Neurology input appreciated, awaiting EEG -Imaging reviewed, meningioma is stable Hypertensive urgency Optimize blood pressure medications DVT prophylaxis -Lovenox History Interval history: Review of systems Constitutional: No fevers, no malaise, no joint pains CVS: No chest pain, no orthopnea, no dyspnea on exertion, no pedal edema GI: No abdominal pain, no diarrhea, no vomiting, no constipation Respiratory: no wheezing, no coughing Hospitalist Physical - Physical exam Narrative exam: General.: Appears well, no distress, nontoxic HEENT: Moist mucous membranes, extraocular muscles intact, no lymphadenopathy Neck: supple Cardiac: S1-S2 heard Lungs: clear to auscultation bilaterally Abdomen: soft , nontender, nondistended, bowel sounds positive Extremities: no edema clubbing or cyanosis Skin: no rash or lesions Neurologic: no gross focal deficits Psych: calm, and cooperative - Constitutional Vitals: Temp Pulse Resp BP Pulse Ox 98.2 F 85 18 116/53 97 03/06/19 12:54 03/06/19 12:54 03/06/19 12:54 03/06/19 12:54 03/06/19 12:54 General appearance: Present: mild distress Results - Labs CBC & Chem 7: 03/05/19 04:44 03/05/19 04:44 Labs: Laboratory Last Values WBC 10.6 K/mm3 (4.5-11.0) 03/05/19 04:44 RBC 5.08 M/mm3 (3.65-5.03) H 03/05/19 04:44 Hgb 15.1 gm/dl (10.1-14.3) H 03/05/19 04:44 Hct 44.6 % (30.3-42.9) H 03/05/19 04:44 MCV 88 fl (79-97) 03/05/19 04:44 MCH 30 pg (28-32) 03/05/19 04:44 MCHC 34 % (30-34) 03/05/19 04:44 RDW 13.0 % (13.2-15.2) L 03/05/19 04:44 Plt Count 169 K/mm3 (140-440) 03/05/19 04:44 Lymph % (Auto) 22.3 % (13.4-35.0) 03/05/19 04:44 [place] % (Auto) 7.8 % (0.0-7.3) H 03/05/19 04:44 Eos % (Auto) 0.1 % (0.0-4.3) 03/05/19 04:44 Baso % (Auto) 0.5 % (0.0-1.8) 03/05/19 04:44 Lymph # 2.4 K/mm3 (1.2-5.4) 03/05/19 04:44 [place] # 0.8 K/mm3 (0.0-0.8) 03/05/19 04:44 Eos # 0.0 K/mm3 (0.0-0.4) 03/05/19 04:44 Baso # 0.1 K/mm3 (0.0-0.1) 03/05/19 04:44 Seg Neutrophils % 69.3 % (40.0-70.0) 03/05/19 04:44 Seg Neutrophils # 7.3 K/mm3 (1.8-7.7) 03/05/19 04:44 PT 12.6 Sec. (12.2-14.9) 03/04/19 18:39 INR 0.97 (0.87-1.13) 03/04/19 18:39 APTT 20.9 Sec. (24.2-36.6) L 03/04/19 18:39 17.2 Sec. (15.1-19.6) 03/04/19 18:39 Sodium 134 mmol/L (137-145) L 03/05/19 04:44 Potassium 3.1 mmol/L (3.6-5.0) L D 03/05/19 04:44 Chloride 93.3 mmol/L (98-107) L 03/05/19 04:44 Carbon Dioxide 20 mmol/L (22-30) L 03/05/19 04:44 24 mmol/L 03/05/19 04:44 BUN 12 mg/dL (7-17) 03/05/19 04:44 0.7 mg/dL (0.7-1.2) 03/05/19 04:44 Estimated GFR > 60 ml/min 03/05/19 04:44 17 % 03/05/19 04:44 Glucose 275 mg/dL (65-100) H 03/05/19 04:44 POC Glucose 210 (70-105) H 03/06/19 16:10 11.8 % (4-6) H 03/06/19 04:29 Calcium 9.0 mg/dL (8.4-10.2) 03/05/19 04:44 < 0.010 ng/mL (0.00-0.029) 03/04/19 18:39 Active Medications - Current Medications Current Medications: Generic Name Dose Route Start Last Admin Trade Name Freq PRN Reason Stop Dose Admin Acetaminophen 650 mg 03/04/19 19:52 Tylenol PO Q4H PRN Pain MILD(1-3)/Fever >100.5/SMYTH Aspirin 81 mg 03/06/19 10:00 03/06/19 09:58 Baby Aspirin PO 81 mg QDAY MARY GRACE Administration Atorvastatin Calcium 40 mg 03/05/19 22:00 03/05/19 21:37 Lipitor PO 40 mg QHS MARY GRACE Administration Carvedilol 6.25 mg 03/05/19 22:00 03/06/19 09:58 Coreg PO 6.25 mg BID MARY GRACE Administration Dextrose 50 ml 03/05/19 15:52 D50w (25gm) Syringe IV PRN PRN Hypoglycemia Famotidine 20 mg 03/05/19 22:00 03/06/19 09:58 Pepcid PO 20 mg BID MARY GRACE Administration Hydralazine HCl 20 mg 03/04/19 21:24 03/05/19 08:33 Apresoline IV 20 mg Q4HR PRN Administration Hypertension Sodium Chloride 1,000 mls @ 100 mls/hr 03/04/19 20:00 03/05/19 19:19 Nacl 0.9% 1000 Ml IV 100 mls/hr DIRECT MARY GRACE Administration Insulin Human Isoph/Insulin Regular 20 unit 03/05/19 17:00 03/06/19 09:09 Humulin 70/30 SUB-Q 20 unit BIDDIAB MARY GRACE Administration Insulin Human Lispro 0 unit 03/05/19 16:30 03/06/19 12:57 Humalog SUB-Q 3 unit ACHS MARY GRACE Administration Protocol Losartan Potassium 100 mg 03/06/19 10:00 03/06/19 09:56 Cozaar PO 100 mg QDAY MARY GRACE Administration Ondansetron HCl 4 mg 03/04/19 19:52 Zofran IV Q8H PRN Nausea And Vomiting Sodium Chloride 10 ml 03/04/19 22:00 03/06/19 16:07 Sodium Chloride Flush Syringe 10 Ml IV Not Given BID MARY GRACE Sodium Chloride 10 ml 03/04/19 19:52 Sodium Chloride Flush Syringe 10 Ml IV PRN PRN LINE FLUSH Nutrition/Malnutrition Assess - Dietary Evaluation Nutrition/Malnutrition Findings: Nutrition Notes Start: 03/06/19 09:36 Freq: Status: Active Protocol: Document 03/06/19 09:36 LP (Rec: 03/06/19 09:38 LP [id number]) Nutrition Notes Need for Assessment generated from: MD Order,Education Initial or Follow up Brief Note Current Diagnosis Diabetes,Hypertension,Stroke Labs/Tests Na 134 K 3.1 BG 275 A1c 11.8 Subjective/Other Information Consult for diet education. Pt states she has had DM but it is hard to follow diet. Pt states drinking diet coke frequently. Advised pt to watch artificial drink sweetners. Pt states eating well and denies wt changes. #1 Nutrition Diagnosis Food and nutrition-related knowledge deficit Etiology DM diet As Evidenced by Signs and Symptoms Pt A1c 11.8 Nutrition Intervention Teaching Recipient Patient Teaching Methods Discussion,Handout Response to Teaching Verbalize understanding Education Handouts Provided Consistent CHO diet Barriers to Learning No Barriers RD phone number provided Yes Patient aware of follow up options Yes Revisit per MD consult or patient Sign Off request:
[2019-03-06] MEDS: NACL 0.9% 1000 ML 1,000 ML IV SCH (18:44)
[2019-03-07] MEDS: HumaLOG SUB-Q SCH ×6 (07:30→21:27)
--- NOTE | 2019-03-07 08:09 | Progress Note ---
Subjective Date of service: 03/07/19 Interval history: i AM GOING TO REVIEW THE mri AND eeg SUSPECT DIABETIC INDUCED SEIZURE VS tia DELIRIUM Objective - Vital Sign Vital Signs - 12hr 03/06/19 03/07/19 03/07/19 22:49 00:00 06:13 Temperature 98.9 F 98.1 F Pulse Rate 80 82 79 Respiratory 20 18 Rate Blood Pressure 181/87 150/80 135/74 O2 Sat by Pulse 94 98 Oximetry - Laboratory Findings CBC and BMP: 03/05/19 04:44 03/05/19 04:44 Abnormal Lab Findings: Abnormal Labs 03/04/19 03/04/19 03/04/19 18:39 18:39 18:39 RBC Hgb 14.7 H Hct MCHC 35 H RDW [place] % (Auto) APTT 20.9 L Sodium 136 L Potassium Chloride 95.7 L Carbon Dioxide BUN 21 H Glucose 418 H POC Glucose Hemoglobin A1c 03/04/19 03/05/19 03/05/19 21:40 04:44 04:44 RBC 5.08 H Hgb 15.1 H Hct 44.6 H MCHC RDW 13.0 L [place] % (Auto) 7.8 H APTT Sodium 134 L Potassium 3.1 L D Chloride 93.3 L Carbon Dioxide 20 L BUN Glucose 275 H POC Glucose 256 H Hemoglobin A1c 03/05/19 03/05/19 03/06/19 17:00 20:41 04:29 RBC Hgb Hct MCHC RDW [place] % (Auto) APTT Sodium Potassium Chloride Carbon Dioxide BUN Glucose POC Glucose 274 H 257 H Hemoglobin A1c 11.8 H 03/06/19 03/06/19 03/06/19 07:49 12:02 16:10 RBC Hgb Hct MCHC RDW [place] % (Auto) APTT Sodium Potassium Chloride Carbon Dioxide BUN Glucose POC Glucose 162 H 233 H 210 H Hemoglobin A1c 03/06/19 03/07/19 22:15 07:51 RBC Hgb Hct MCHC RDW [place] % (Auto) APTT Sodium Potassium Chloride Carbon Dioxide BUN Glucose POC Glucose 275 H 292 H Hemoglobin A1c
[2019-03-07] MEDS: COZAAR PO SCH (09:46)
[2019-03-07] MEDS: PEPCID PO SCH ×2 (09:46→21:27)
[2019-03-07] MEDS: COREG PO SCH ×2 (09:46→21:26)
[2019-03-07] MEDS: BABY ASPIRIN PO SCH (09:46)
[2019-03-07] MEDS: SODIUM CHLORIDE FLUSH SYRINGE 10 ML IV SCH ×2 (09:51→21:27)
[2019-03-07] MEDS: PROzac PO SCH (10:00)
[2019-03-07] MEDS ORDERED: INSULIN GLARGINE HUM REC ANLOG 10 UNIT SQ SCH (10:00)
[2019-03-07] MEDS ORDERED: LANTUS SUB-Q SCH (11:00)
--- NOTE | 2019-03-07 12:45 | Progress Note ---
Assessment and Plan Assessment and plan: 79-year-old woman presenting to the hospital altered mental status, apparently patient became altered after she received Ativan for an MRI and previous admission Past medical history; hypertension, diabetes, stroke, temporal meningioma acute metabolic/toxic encephalopathy Frequent reorientation, avoid benzodiazepines as they make her confusion worse -Neurology input appreciated, awaiting EEG -Imaging reviewed, meningioma is stable Hypertensive urgency Optimize blood pressure medications Type 2 DM; with hyperglycemia -optimize insulins, a1c 11 DVT prophylaxis -Lovenox Dispo; awaiting PT input, would like a short stint of rehab if offered friends say she is a hoarder with and rotten food in her fridge at home, APS called 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 Mental health consulted History Interval history: Review of systems Constitutional: No fevers, no malaise, no joint pains CVS: No chest pain, no orthopnea, no dyspnea on exertion, no pedal edema GI: No abdominal pain, no diarrhea, no vomiting, no constipation Respiratory: no wheezing, no coughing Hospitalist Physical - Physical exam Narrative exam: General.: Appears well, no distress, nontoxic HEENT: Moist mucous membranes, extraocular muscles intact, no lymphadenopathy Neck: supple Cardiac: S1-S2 heard Lungs: clear to auscultation bilaterally Abdomen: soft , nontender, nondistended, bowel sounds positive Extremities: no edema clubbing or cyanosis Skin: no rash or lesions Neurologic: no gross focal deficits Psych: calm, and cooperative - Constitutional Vitals: Temp Pulse Resp BP Pulse Ox 98.1 F 79 18 135/74 98 03/07/19 06:13 03/07/19 06:13 03/07/19 06:13 03/07/19 06:13 03/07/19 06:13 General appearance: Present: mild distress Results - Labs CBC & Chem 7: 03/05/19 04:44 03/05/19 04:44 Labs: Laboratory Last Values WBC 10.6 K/mm3 (4.5-11.0) 03/05/19 04:44 RBC 5.08 M/mm3 (3.65-5.03) H 03/05/19 04:44 Hgb 15.1 gm/dl (10.1-14.3) H 03/05/19 04:44 Hct 44.6 % (30.3-42.9) H 03/05/19 04:44 MCV 88 fl (79-97) 03/05/19 04:44 MCH 30 pg (28-32) 03/05/19 04:44 MCHC 34 % (30-34) 03/05/19 04:44 RDW 13.0 % (13.2-15.2) L 03/05/19 04:44 Plt Count 169 K/mm3 (140-440) 03/05/19 04:44 Lymph % (Auto) 22.3 % (13.4-35.0) 03/05/19 04:44 [place] % (Auto) 7.8 % (0.0-7.3) H 03/05/19 04:44 Eos % (Auto) 0.1 % (0.0-4.3) 03/05/19 04:44 Baso % (Auto) 0.5 % (0.0-1.8) 03/05/19 04:44 Lymph # 2.4 K/mm3 (1.2-5.4) 03/05/19 04:44 [place] # 0.8 K/mm3 (0.0-0.8) 03/05/19 04:44 Eos # 0.0 K/mm3 (0.0-0.4) 03/05/19 04:44 Baso # 0.1 K/mm3 (0.0-0.1) 03/05/19 04:44 Seg Neutrophils % 69.3 % (40.0-70.0) 03/05/19 04:44 Seg Neutrophils # 7.3 K/mm3 (1.8-7.7) 03/05/19 04:44 PT 12.6 Sec. (12.2-14.9) 03/04/19 18:39 INR 0.97 (0.87-1.13) 03/04/19 18:39 APTT 20.9 Sec. (24.2-36.6) L 03/04/19 18:39 17.2 Sec. (15.1-19.6) 03/04/19 18:39 Sodium 134 mmol/L (137-145) L 03/05/19 04:44 Potassium 3.1 mmol/L (3.6-5.0) L D 08/10/19 04:44 Chloride 93.3 mmol/L (98-107) L 03/05/19 04:44 Carbon Dioxide 20 mmol/L (22-30) L 03/05/19 04:44 24 mmol/L 03/05/19 04:44 BUN 12 mg/dL (7-17) 03/05/19 04:44 0.7 mg/dL (0.7-1.2) 03/05/19 04:44 Estimated GFR > 60 ml/min 03/05/19 04:44 17 % 03/05/19 04:44 Glucose 275 mg/dL (65-100) H 03/05/19 04:44 POC Glucose 322 (70-105) H 03/07/19 11:40 11.8 % (4-6) H 03/06/19 04:29 Calcium 9.0 mg/dL (8.4-10.2) 03/05/19 04:44 < 0.010 ng/mL (0.00-0.029) 03/04/19 18:39 Active Medications - Current Medications Current Medications: Generic Name Dose Route Start Last Admin Trade Name Freq PRN Reason Stop Dose Admin Acetaminophen 650 mg 03/04/19 19:52 Tylenol PO Q4H PRN Pain MILD(1-3)/Fever >100.5/SMYTH Aspirin 81 mg 03/06/19 10:00 03/07/19 09:46 Baby Aspirin PO 81 mg QDAY MARY GRACE Administration Atorvastatin Calcium 40 mg 03/05/19 22:00 03/06/19 22:49 Lipitor PO 40 mg QHS MARY GRACE Administration Carvedilol 6.25 mg 03/05/19 22:00 03/07/19 09:46 Coreg PO 6.25 mg BID MARY GRACE Administration Dextrose 50 ml 03/05/19 15:52 D50w (25gm) Syringe IV PRN PRN Hypoglycemia Famotidine 20 mg 03/05/19 22:00 03/07/19 09:46 Pepcid PO 20 mg BID MARY GRACE Administration Fluoxetine HCl 20 mg 03/07/19 10:00 Prozac PO QDAY MARY GRACE Hydralazine HCl 20 mg 03/04/19 21:24 03/05/19 08:33 Apresoline IV 20 mg Q4HR PRN Administration Hypertension Sodium Chloride 1,000 mls @ 100 mls/hr 03/04/19 20:00 03/06/19 18:44 Nacl 0.9% 1000 Ml IV 100 mls/hr DIRECT MARY GRACE Administration Insulin Glargine 40 units 03/07/19 12:43 Lantus SUB-Q DAILY MARY GRACE Insulin Human Lispro 0 unit 03/05/19 16:30 03/07/19 07:30 Humalog SUB-Q 4 unit ACHS MARY GRACE Administration Protocol Insulin Human Lispro 5 unit 03/07/19 16:30 Humalog SUB-Q AC MARY GRACE Losartan Potassium 100 mg 03/06/19 10:00 03/07/19 09:46 Cozaar PO 100 mg QDAY MARY GRACE Administration Ondansetron HCl 4 mg 03/04/19 19:52 Zofran IV Q8H PRN Nausea And Vomiting Sodium Chloride 10 ml 03/04/19 22:00 03/07/19 09:51 Sodium Chloride Flush Syringe 10 Ml IV 10 ml BID MARY GRACE Administration Sodium Chloride 10 ml 03/04/19 19:52 Sodium Chloride Flush Syringe 10 Ml IV PRN PRN LINE FLUSH Nutrition/Malnutrition Assess - Dietary Evaluation Nutrition/Malnutrition Findings: Nutrition Notes Start: 03/06/19 09: 36 Freq: Status: Active Protocol: Document 03/06/19 09:36 LP (Rec: 03/06/19 09:38 LP [id number]) Nutrition Notes Need for Assessment generated from: MD Order,Education Initial or Follow up Brief Note Current Diagnosis Diabetes,Hypertension,Stroke Labs/Tests Na 134 K 3.1 BG 275 A1c 11.8 Subjective/Other Information Consult for diet education. Pt states she has had DM but it is hard to follow diet. Pt states drinking diet coke frequently. Advised pt to watch artificial drink sweetners. Pt states eating well and denies wt changes. #1 Nutrition Diagnosis Food and nutrition-related knowledge deficit Etiology DM diet As Evidenced by Signs and Symptoms Pt A1c 11.8 Nutrition Intervention Teaching Recipient Patient Teaching Methods Discussion,Handout Response to Teaching Verbalize understanding Education Handouts Provided Consistent CHO diet Barriers to Learning No Barriers RD phone number provided Yes Patient aware of follow up options Yes Revisit per MD consult or patient Sign Off request:
[2019-03-07] MEDS: LANTUS SUB-Q SCH (13:45)
[2019-03-07] MEDS: TYLENOL PO PRN (21:26)
[2019-03-08] MEDS: HumaLOG SUB-Q SCH ×7 (07:30→21:06)
--- NOTE | 2019-03-08 07:52 | Progress Note ---
Subjective Date of service: 03/08/19 Interval history: EEG is normal for alisson she can go home and follow up in the office made rec's re home care and diabetic management plan supect metabolic cuases Objective - Vital Sign Vital Signs - 12hr 03/07/19 03/07/19 03/07/19 21:01 21:26 22:00 Temperature 98.9 F Pulse Rate 90 Pulse Rate [ 80 Apical] Respiratory 18 18 Rate Blood Pressure 157/80 Blood Pressure [Left] O2 Sat by Pulse 93 Oximetry 03/07/19 03/08/19 22:26 05:00 Temperature 98.2 F Pulse Rate 75 Pulse Rate [ Apical] Respiratory 18 20 Rate Blood Pressure Blood Pressure 135/67 [Left] O2 Sat by Pulse 96 Oximetry - Laboratory Findings CBC and BMP: 03/05/19 04:44 03/05/19 04:44 Abnormal Lab Findings: Abnormal Labs 03/04/19 03/04/19 03/04/19 18:39 18:39 18:39 RBC Hgb 14.7 H Hct MCHC 35 H RDW [place] % (Auto) APTT 20.9 L Sodium 136 L Potassium Chloride 95.7 L Carbon Dioxide BUN 21 H Glucose 418 H POC Glucose Hemoglobin A1c 03/04/19 03/05/19 03/05/19 21:40 04:44 04:44 RBC 5.08 H Hgb 15.1 H Hct 44.6 H MCHC RDW 13.0 L [place] % (Auto) 7.8 H APTT Sodium 134 L Potassium 3.1 L D Chloride 93.3 L Carbon Dioxide 20 L BUN Glucose 275 H POC Glucose 256 H Hemoglobin A1c 03/05/19 03/05/19 03/06/19 17:00 20:41 04:29 RBC Hgb Hct MCHC RDW [place] % (Auto) APTT Sodium Potassium Chloride Carbon Dioxide BUN Glucose POC Glucose 274 H 257 H Hemoglobin A1c 11.8 H 03/06/19 03/06/19 03/06/19 07:49 12:02 16:10 RBC Hgb Hct MCHC RDW [place] % (Auto) APTT Sodium Potassium Chloride Carbon Dioxide BUN Glucose POC Glucose 162 H 233 H 210 H Hemoglobin A1c 03/06/19 03/07/19 03/07/19 22:15 07:51 11:40 RBC Hgb Hct MCHC RDW [place] % (Auto) APTT Sodium Potassium Chloride Carbon Dioxide BUN Glucose POC Glucose 275 H 292 H 322 H Hemoglobin A1c 03/07/19 03/07/19 16:24 21:29 RBC Hgb Hct MCHC RDW [place] % (Auto) APTT Sodium Potassium Chloride Carbon Dioxide BUN Glucose POC Glucose 338 H 227 H Hemoglobin A1c
--- NOTE | 2019-03-08 09:15 | Progress Note ---
Assessment and Plan Assessment and plan: Patient is a 79 yo woman with a history of HTN, DM type II, dyslipidemia, depression, temporal meningioma and recent TIA, just discharged from here on 03/02/2019 and returned 03/04/19 with similar complaints of slurred speech/AMS. She was seen by Neurologist, Dr. Currie, EEG in his note reported as normal and he cleared to go home. Patient was placed on insulin at discharge and she doesn't know how to administered it -Acute metabolic/toxic encephalopathy resolved -Frequent reorientation, avoid benzodiazepines as they make her confusion worse -Hypertensive urgency: Optimize blood pressure medications -Type 2 DM with hyperglycemia: optimize insulins, a1c 11 -DVT prophylaxis: Lovenox History Interval history: Patient was seen and examined. Follow-up on current diagnosis of AMS. Overnight uneventful. Patient denies any chest pain, shortness breath, nausea/vomiting or severe headaches. Imaging, nursing note, chart, labs and old chart reviewed. Discussed with patient. Hospitalist Physical - Physical exam Narrative exam: Gen: WDWN, NAD, Awake, Alert, Orientated x 3 HEENT: NCAT, EOMI, PERRL, OP Clear Neck: supple, no adenopathy, no thyromegaly, no JVD CVS/Heart: RRR, normal S1S2, pulses present bilaterally Chest/Lungs: CTA B, Symmetrical chest expansion, good air entry bilaterally GI/Abdomen: soft, NTND, good bowel sounds, no guarding or rebound /Bladder: no suprapubic tenderness, no CVA or paraspinal tenderness Extermity/Skin: no c/c/e, no obvious rash MSK: FROM x 4 Neuro: CN 2-12 grossly intact, no focal deficits Psych: calm - Constitutional Vitals: Temp Pulse Resp BP Pulse Ox 98.2 F 75 20 135/67 96 03/08/19 05:00 03/08/19 05:00 03/08/19 05:00 03/08/19 05:00 03/08/19 05:00 General appearance: Absent: mild distress Results - Labs CBC & Chem 7: 03/05/19 04:44 03/05/19 04:44 Labs: Laboratory Last Values WBC 10.6 K/mm3 (4.5-11.0) 03/05/19 04:44 RBC 5.08 M/mm3 (3.65-5.03) H 03/05/19 04:44 Hgb 15.1 gm/dl (10.1-14.3) H 03/05/19 04:44 Hct 44.6 % (30.3-42.9) H 03/05/19 04:44 MCV 88 fl (79-97) 03/05/19 04:44 MCH 30 pg (28-32) 03/05/19 04:44 MCHC 34 % (30-34) 03/05/19 04:44 RDW 13.0 % (13.2-15.2) L 03/05/19 04:44 Plt Count 169 K/mm3 (140-440) 03/05/19 04:44 Lymph % (Auto) 22.3 % (13.4-35.0) 03/05/19 04:44 [place] % (Auto) 7.8 % (0.0-7.3) H 03/05/19 04:44 Eos % (Auto) 0.1 % (0.0-4.3) 03/05/19 04:44 Baso % (Auto) 0.5 % (0.0-1.8) 03/05/19 04:44 Lymph # 2.4 K/mm3 (1.2-5.4) 03/05/19 04:44 [place] # 0.8 K/mm3 (0.0-0.8) 03/05/19 04:44 Eos # 0.0 K/mm3 (0.0-0.4) 03/05/19 04:44 Baso # 0.1 K/mm3 (0.0-0.1) 03/05/19 04:44 Seg Neutrophils % 69.3 % (40.0-70.0) 03/05/19 04:44 Seg Neutrophils # 7.3 K/mm3 (1.8-7.7) 03/05/19 04:44 PT 12.6 Sec. (12.2-14.9) 03/04/19 18:39 INR 0.97 (0.87-1.13) 03/04/19 18:39 APTT 20.9 Sec. (24.2-36.6) L 03/04/19 18:39 17.2 Sec. (15.1-19.6) 03/04/19 18:39 Sodium 134 mmol/L (137-145) L 03/05/19 04:44 Potassium 3.1 mmol/L (3.6-5.0) L D 03/05/19 04:44 Chloride 93.3 mmol/L (98-107) L 03/05/19 04:44 Carbon Dioxide 20 mmol/L (22-30) L 03/05/19 04:44 24 mmol/L 03/05/19 04:44 BUN 12 mg/dL (7-17) 03/05/19 04:44 0.7 mg/dL (0.7-1.2) 03/05/19 04:44 Estimated GFR > 60 ml/min 03/05/19 04:44 17 % 03/05/19 04:44 Glucose 275 mg/dL (65-100) H 03/05/19 04:44 POC Glucose 227 (70-105) H 03/07/19 21:29 11.8 % (4-6) H 03/06/19 04:29 Calcium 9.0 mg/dL (8.4-10.2) 03/05/19 04:44 < 0.010 ng/mL (0.00-0.029) 03/04/19 18:39 Active Medications - Current Medications Current Medications: Generic Name Dose Route Start Last Admin Trade Name Freq PRN Reason Stop Dose Admin Acetaminophen 650 mg 03/04/19 19:52 03/07/19 21:26 Tylenol PO 650 mg Q4H PRN Administration Pain MILD(1-3)/Fever >100.5/SMYTH Aspirin 81 mg 03/06/19 10:00 03/07/19 09:46 Baby Aspirin PO 81 mg QDAY MARY GRACE Administration Atorvastatin Calcium 40 mg 03/05/19 22:00 03/07/19 21:26 Lipitor PO 40 mg QHS MARY GRACE Administration Carvedilol 6.25 mg 03/05/19 22:00 03/07/19 21:26 Coreg PO 6.25 mg BID MARY GRACE Administration Dextrose 50 ml 03/05/19 15:52 D50w (25gm) Syringe IV PRN PRN Hypoglycemia Famotidine 20 mg 03/05/19 22:00 03/07/19 21:27 Pepcid PO 20 mg BID MARY GRACE Administration Fluoxetine HCl 20 mg 03/07/19 10:00 03/07/19 10:00 Prozac PO 20 mg QDAY MARY GRACE Administration Hydralazine HCl 20 mg 03/04/19 21:24 03/05/19 08:33 Apresoline IV 20 mg Q4HR PRN Administration Hypertension Sodium Chloride 1,000 mls @ 100 mls/hr 03/04/19 20:00 03/06/19 18:44 Nacl 0.9% 1000 Ml IV 100 mls/hr DIRECT MARY GRACE Administration Insulin Glargine 40 units 03/07/19 13:30 03/07/19 13:45 Lantus SUB-Q 40 units DAILY MARY GRACE Administration Insulin Human Lispro 0 unit 03/05/19 16:30 03/07/19 21:27 Humalog SUB-Q 3 unit ACHS MARY GRACE Administration Protocol Insulin Human Lispro 5 unit 03/07/19 12:30 03/07/19 16:30 Humalog SUB-Q 5 unit AC MARY GRACE Administration Losartan Potassium 100 mg 03/06/19 10:00 03/07/19 09:46 Cozaar PO 100 mg QDAY MARY GRACE Administration Ondansetron HCl 4 mg 03/04/19 19:52 Zofran IV Q8H PRN Nausea And Vomiting Sodium Chloride 10 ml 03/04/19 22:00 03/07/19 21:27 Sodium Chloride Flush Syringe 10 Ml IV 10 ml BID MARY GRACE Administration Sodium Chloride 10 ml 03/04/19 19:52 Sodium Chloride Flush Syringe 10 Ml IV PRN PRN LINE FLUSH Nutrition/Malnutrition Assess - Dietary Evaluation Nutrition/Malnutrition Findings: Nutrition Notes Start: 03/06/19 09:36 Freq: Status: Active Protocol: Document 03/06/19 09:36 LP (Rec: 03/06/19 09:38 LP [id number]) Nutrition Notes Need for Assessment generated from: MD Order,Education Initial or Follow up Brief Note Current Diagnosis Diabetes,Hypertension,Stroke Labs/Tests Na 134 K 3.1 BG 275 A1c 11.8 Subjective/Other Information Consult for diet education. Pt states she has had DM but it is hard to follow diet. Pt states drinking diet coke frequently. Advised pt to watch artificial drink sweetners. Pt states eating well and denies wt changes. #1 Nutrition Diagnosis Food and nutrition-related knowledge deficit Etiology DM diet As Evidenced by Signs and Symptoms Pt A1c 11.8 Nutrition Intervention Teaching Recipient Patient Teaching Methods Discussion,Handout Response to Teaching Verbalize understanding Education Handouts Provided Consistent CHO diet Barriers to Learning No Barriers RD phone number provided Yes Patient aware of follow up options Yes Revisit per MD consult or patient Sign Off request:
--- NOTE | 2019-03-08 09:18 | Discharge Summary ---
Providers - Providers Date of Admission: 03/04/19 19:52 Date of discharge: 03/09/19 Attending physician: CHAPINCITO HERRERA 03/05/19 06:24 Consult to Physician [CONS] Routine Comment: Consulting Provider: JORDON CURRIE Physician Instructions: Reason For Exam: AMS, recent TIA/CVA 03/05/19 15:52 Consult to Dietitian/Nutrition [CONS] Routine Physician Instructions: Reason For Exam: Reason for Consult: Diet education 03/06/19 18:19 Physical Therapy Evaluation and Treat [CONS] Routine Comment: Reason For Exam: ataxia 03/07/19 15:53 Consult to Mental Health [CONS] Routine Reason For Exam: To evaluate for competence to make own decisions Place consult to:: [facility] Notified:: Phone number called:: [phone] Was contact made?: No Time called:: 16:33 Hospitalization Condition: Stable Hospital course: Patient is a 79 yo woman with a history of HTN, DM type II, dyslipidemia, depression, temporal meningioma and recent TIA, just discharged from here on 03/02/2019 and returned 03/04/19 with similar complaints of slurred speech/AMS aside from seizure activity. She was seen by Neurologist, Dr. Currie, EEG in his note reported as normal and he has cleared to go home. Patient was placed on insulin at discharge and she doesn't know how to administered it Discharge Diagnoses: -Acute metabolic/toxic encephalopathy resolved -Suspected TIA, poa -Seizure related to Diabetes mellitus per Neurologist, Dr. Currie, no anti- sz meds recommended -Frequent reorientation, avoid benzodiazepines as they make her confusion worse -Hypertensive urgency: Optimize blood pressure medications -Type 2 DM with hyperglycemia: optimize insulins, a1c 11 -DVT prophylaxis: Lovenox I went back and spoke with her regarding rehab, she declined, she wants to go feed her dog, a Boxer==>she changed her mind and is going to [facility] Disposition: DC/[place]-03 SNF [facility] Time spent for discharge: 35 minutes Core Measure Documentation - Palliative Care Palliative Care/ Comfort Measures: Not Applicable - Core Measures Any of the following diagnoses?: none - VTE Discharge Requirements Deep Vein Thrombosis/Pulmonary Embolism Present on Admission: No Has pt received <5 days of overlap therapy or INR<2.0: No Anticoagulant overlap therapy prescribed at discharge: No Contraindication No Overlap Therapy order at DC: Not Indicated Exam - Physical Exam Narrative exam: Gen: WDWN, NAD, Awake, Alert, Orientated x 3 HEENT: NCAT, EOMI, PERRL, OP Clear Neck: supple, no adenopathy, no thyromegaly, no JVD CVS/Heart: RRR, normal S1S2, pulses present bilaterally Chest/Lungs: CTA B, Symmetrical chest expansion, good air entry bilaterally GI/Abdomen: soft, NTND, good bowel sounds, no guarding or rebound /Bladder: no suprapubic tenderness, no CVA or paraspinal tenderness Extermity/Skin: no c/c/e, no obvious rash MSK: FROM x 4 Neuro: CN 2-12 grossly intact, no focal deficits Psych: calm - Constitutional Vitals: Temp Pulse Resp BP Pulse Ox 98.2 F 75 20 135/67 96 03/08/19 05:00 03/08/19 05:00 03/08/19 05:00 03/08/19 05:00 03/08/19 05:00 Plan Activity: other (no strenous activity, no driving, no operating heavy machinery) Diet: diabetic Special Instructions: record blood sugar diary (3 times a day) Follow up with: YARIEL WHITESIDE MD [Staff Physician] - 3-5 Days JORDON CURRIE MD [Staff Physician] - 7 Days Prescriptions: Aspirin 325 mg PO QDAY #30 tablet
[2019-03-08] MEDS: PROzac PO SCH (10:36)
[2019-03-08] MEDS: COREG PO SCH ×2 (10:36→21:06)
[2019-03-08] MEDS: PEPCID PO SCH ×2 (10:36→21:05)
[2019-03-08] MEDS: BABY ASPIRIN PO SCH (10:36)
[2019-03-08] MEDS: COZAAR PO SCH (10:36)
[2019-03-08] MEDS: SODIUM CHLORIDE FLUSH SYRINGE 10 ML IV SCH ×2 (10:38→21:08)
[2019-03-08] MEDS: LANTUS SUB-Q SCH (10:41)
[2019-03-08] MEDS: TYLENOL PO PRN (21:05)
[2019-03-09] MEDS: APRESOLINE IV PRN (06:26)
[2019-03-09] MEDS: COREG PO SCH (09:14)
[2019-03-09] MEDS: COZAAR PO SCH (09:14)
[2019-03-09] MEDS: BABY ASPIRIN PO SCH (09:15)
[2019-03-09] MEDS: PEPCID PO SCH (09:15)
[2019-03-09] MEDS: LANTUS SUB-Q SCH (09:15)
[2019-03-09] MEDS: PROzac PO SCH (09:15)
[2019-03-09] MEDS: HumaLOG SUB-Q SCH ×2 (09:16)
[2019-03-09] MEDS: SODIUM CHLORIDE FLUSH SYRINGE 10 ML IV SCH (09:19)
[2019-03-09 12:52] VITALS: BP 125/62
== END 2019-03-09 12:15 | DRG 92 ==
LOC: ED 17:47 → 4A 19:52 → 3A 03-06 17:55
PROVIDERS: ADMIT Internal Medicine; ATTEND Internal Medicine
DX: G92 Toxic encephalopathy (principal); G45.9 Transient cerebral ischemic attack, unspecified; E11.65 Type 2 diabetes mellitus with hyperglycemia; I16.0 Hypertensive urgency; G40.909 Epilepsy, unspecified, not intractable, without status epilepticus; R47.81 Slurred speech; D32.0 Benign neoplasm of cerebral meninges; I10 Essential (primary) hypertension; Z79.4 Long term (current) use of insulin; Z88.0 Allergy status to penicillin
CPT/HCPCS: 36415; 70450; 80048; 82962; 83036; 84484; 85025; 85610; 85670; 85730; 93005; 93010; 94760; 96365; 96372; 96375; G0378; A9270-GY; J0360; J1630; J1815; J1953; J7030

== ENCOUNTER 2019-05-25 12:25 | Emergency (ER) | payer MEDICARE ==
--- NOTE | 2019-05-25 12:38 | Event Note ---
ED Screening Note Date of service: 05/25/19 Time: 12:31 ED Screening Note: Pt sent over from [facility] -- pt has been feeling poorly x 1 week, with generalized weakness,dry heaving x1 and dizziness -- BS in office >400 with +ketones in urine -- concern for DKA and sent to ED. she denies any n/v and denies any pain and denies sob She admits to not being on her Diabetic meds x 1 week No hx of DKA This initial assessment/diagnostic orders/clinical plan/treatment(s) is/are subject to change based on patients health status, clinical progression and re- assessment by fellow clinical providers in the ED. Further treatment and workup at subsequent clinical providers discretion. Patient/guardian urged not to elope from the ED as their condition may be serious if not clinically assessed and managed. Initial orders include: Labs/fluids/UA
[2019-05-25] MEDS ORDERED: SODIUM CHLORIDE 0.9% 1000 ML 1,000 ML IV ONE ×2 (13:27→16:37)
[2019-05-25 13:33] LABS: Basophils % (Auto) 0.4 % (0.0-1.8); Eosinophils % (Auto) 0.2 % (0.0-4.3); Hematocrit 40.3 % (30.3-42.9); Hemoglobin 13.9 gm/dl (10.1-14.3); Lymphocytes # (Auto) 2.1 K/mm3 (1.2-5.4); Lymphocytes % (Auto) 20.9 % (13.4-35.0); Mean Corpuscular HGB Conc 34 % (30-34); Mean Corpuscular Volume 85 fl (79-97); Monocytes # (Auto) 0.6 K/mm3 (0.0-0.8); Monocytes % (Auto) 5.5 % (0.0-7.3); Red Blood Count 4.73 M/mm3 (3.65-5.03); Red Cell Distribution Width 13.2 % (13.2-15.2)
--- NOTE | 2019-05-25 13:36 | XRay Report ---
CHEST 1 VIEW INDICATION: weakness. COMPARISON: None FINDINGS: Support devices: None. Heart: Within normal limits. Lungs/Pleura: No acute air space or interstitial disease. Additional findings: None. IMPRESSION: 1. No acute findings. Signer Name: Evans Gunn MD Signed: 05/25/2019 1:32 PM Workstation Name: [id number]
[2019-05-25 13:51] LABS: Alanine Aminotransferase 13 units/L (7-56); Albumin 3.9 g/dL (3.9-5); BUN/Creatinine Ratio 47; Blood Urea Nitrogen 33 mg/dL (7-17); Calcium 9.7 mg/dL (8.4-10.2); Hemolysis Index 3
[2019-05-25] MEDS ORDERED: IPRATROPIUM/ALBUTEROL SULFATE 3 ML AMPUL.NEB IH ONE (14:23)
--- NOTE | 2019-05-25 14:33 | Emergency Department Report ---
ED General Adult HPI - General Chief complaint: Weakness Stated complaint: DIABETES Time Seen by Provider: 05/25/19 12:30 Source: patient Mode of arrival: Ambulatory Limitations: No Limitations - History of Present Illness Initial comments: 79-year-old female presents to the emergency room by referral primary care provider for dizziness nausea and hyperglycemia 1 week. Patient reports that she has been off of all medications 1 week. She states that she got confused and just stopped taking. Patient denies any fevers chills no dysuria n o abdominal pain no cough no pain. Patient admits to decreasing urination but increase in thirst and dizziness. Patient was seen by her primary care provider today and blood sugar in the office was 415. Patient's blood sugar in triage was 461. Close friend at bedside states that patient often. Taken her medications and will need to be followed up in the emergency room. Onset/Timin -: week(s) (taken no medication. ) - Related Data Home Medications Medication Instructions Recorded Confirmed Last Taken Losartan [Cozaar] 100 mg PO QDAY 03/06/19 05/25/19 05/18/19 metFORMIN [Glucophage] 500 mg PO BID 03/06/19 05/25/19 05/18/19 Insulin Glargine,Hum.rec.anlog 17 units SQ QWEEK 05/25/19 05/25/19 05/18/19 [Thor Mcgarry] Previous Rx's Medication Instructions Recorded Last Taken Type AtorvaSTATin [Lipitor] 40 mg PO QHS #30 tablet 03/02/19 05/18/19 Rx Carvedilol [Coreg] 6.25 mg PO BID #60 tablet 03/02/19 05/18/19 Rx Allergies Allergy/AdvReac Type Severity Reaction Status Date / Time Penicillins Allergy Unknown Verified 01/21/15 18:11 ED Review of Systems ROS: Stated complaint: DIABETES Other details as noted in HPI Comment: All other systems reviewed and negative ED Past Medical Hx - Past Medical History Previous Medical History?: Yes Hx Hypertension: Yes Hx Diabetes: Yes Additional medical history: TIA 03/14 - Surgical History Past Surgical History?: Yes Additional Surgical History: biopsy - Social History Smoking Status: Former Smoker - Medications Home Medications: Home Medications Medication Instructions Recorded Confirmed Last Taken Type AtorvaSTATin [Lipitor] 40 mg PO QHS #30 tablet 03/02/19 05/25/19 05/18/19 Rx Carvedilol [Coreg] 6.25 mg PO BID #60 tablet 03/02/19 05/25/19 05/18/19 Rx Losartan [Cozaar] 100 mg PO QDAY 03/06/19 05/25/19 05/18/19 History metFORMIN [Glucophage] 500 mg PO BID 03/06/19 05/25/19 05/18/19 History Insulin Glargine,Hum.rec.anlog 17 units SQ QWEEK 05/25/19 05/25/19 05/18/19 History [Thor Mcgarry] ED Physical Exam - General Limitations: No Limitations General appearance: alert, in no apparent distress - Head Head exam: Present: atraumatic, normocephalic - Eye Eye exam: Present: normal appearance, EOMI - ENT ENT exam: Present: mucous membranes dry - Neck Neck exam: Present: normal inspection - Respiratory Respiratory exam: Present: normal lung sounds bilaterally. Absent: respiratory distress - Cardiovascular Cardiovascular Exam: Present: regular rate, normal rhythm. Absent: systolic murmur, diastolic murmur, rubs, gallop - GI/Abdominal GI/Abdominal exam: Present: soft, normal bowel sounds - Extremities Exam Extremities exam: Present: normal inspection - Back Exam Back exam: Present: normal inspection - Neurological Exam Neurological exam: Present: alert, oriented X3 - Psychiatric Psychiatric exam: Present: normal affect, normal mood - Skin Skin exam: Present: warm, dry, intact, normal color. Absent: rash ED Course Vital Signs 05/25/19 05/25/19 05/25/19 12:28 13:32 13:45 Temperature 98.6 F Pulse Rate 95 H 82 Respiratory 16 10 L 18 Rate Blood Pressure 137/58 O2 Sat by Pulse 100 99 Oximetry ED Medical Decision Making - Lab Data Result diagrams: 05/25/19 13:17 05/25/19 13:17 Critical care attestation.: If time is entered above; I have spent that time in minutes in the direct care of this critically ill patient, excluding procedure time. ED Disposition Clinical Impression: Hyperglycemia due to type 2 diabetes mellitus, Noncompliance with medication regimen Disposition: DC-01 TO HOME OR SELFCARE Is pt being admited?: No Does the pt Need Aspirin: No Condition: Stable Instructions: Diabetes Mellitus Type 2 in Adults (ED) Additional Instructions: Please take your medications that has been prescribed to you by your primary care provider. Follow-up which her primary care provider in 2 days. Referrals: PRIMARY CARE, [Primary Care Provider] - 3-5 Days SHANNAN LEON MD [Staff Physician] - 3-5 Days
[2019-05-25 14:38] LABS: Platelet Count 193 K/mm3 (140-440)
[2019-05-25] MEDS ORDERED: INSULIN REGULAR, HUMAN 100 UNITS/1 ML SUB-Q ONE ×2 (15:30→16:57)
[2019-05-25 19:01] VITALS: BP 132/74
== END 2019-05-25 18:59 | disposition home or self-care (01) ==
LOC: ED 12:25
DX: E11.65 Type 2 diabetes mellitus with hyperglycemia (principal); I10 Essential (primary) hypertension; Z91.14 Patient's other noncompliance with medication regimen; Z79.899 Other long term (current) drug therapy; Z87.891 Personal history of nicotine dependence; Z88.0 Allergy status to penicillin
CPT/HCPCS: 36415; 71045; 80053; 82805; 82962; 84443; 84484; 85025; 96360; 96361; 96372; 99284; J7030; J1815